=== PATIENT | female | born 1985 | race Caucasian/White ===

== ENCOUNTER 2022-06-04 20:48 | Inpatient (IN) | payer OTHER ==
--- NOTE | 2022-06-04 22:29 | CT ---
EXAMINATION TYPE: CT brain wo con DATE OF EXAM: 06/04/2022 COMPARISON: None HISTORY: ams CT DLP: 1109.4 mGycm Automated exposure control for dose reduction was used. Images of the brain obtained with no contrast. Ventricles are normal size. There is no mass effect or midline shift. No sign of intracranial hemorrh age. Calvarium is intact. There is normal aeration of the mastoid sinuses. IMPRESSION: Negative unenhanced head CT scan.
[2022-06-04 22:36] LABS: Basophils % (A) 0 %; Eosinophils % (A) 0 %; HCT 45.8 % (34.0-46.0); HGB 15.6 gm/dL (11.4-16.0); Lymphocytes # (A) 0.8 k/uL (1.0-4.8); Lymphocytes % (A) 5 %; MCH 31.4 pg (25.0-35.0); MCHC 34.1 g/dL (31.0-37.0); MCV 92.1 fL (80.0-100.0); Monocytes # (A) 0.6 k/uL (0-1.0); Monocytes % (A) 4 %; Neutrophils # (A) 13.7 k/uL (1.3-7.7); Neutrophils % (A) 90 %; Platelet Count 247 k/uL (150-450); RBC 4.98 m/uL (3.80-5.40); RDW 12.8 % (11.5-15.5); WBC 15.3 k/uL (3.8-10.6)
[2022-06-04 22:50] LABS: ALT 48 U/L (4-34); AST 39 U/L (14-36); Acetaminophen <10.0 ug/mL; African American GFR (CKD) >90 (>60 ml/min/1.73 sqM); Albumin 4.6 g/dL (3.5-5.0); Alkaline Phosphatase 94 U/L (38-126); Anion Gap 12 mmol/L; Blood Urea Nitrogen 8 mg/dL (7-17); Calcium 9.2 mg/dL (8.4-10.2); Carbon Dioxide 24 mmol/L (22-30); Chloride 104 mmol/L (98-107); Glucose 236 mg/dL (74-99); Non-African American GFR(CKD) >90 (>60 ml/min/1.73 sqM); Potassium 3.8 mmol/L (3.5-5.1); Salicylate <1.0 mg/dL; Sodium 140 mmol/L (137-145); Total Bilirubin 1.4 mg/dL (0.2-1.3); Total Protein 7.5 g/dL (6.3-8.2)
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
[2022-06-05] MEDS ORDERED: MAG HYDROX/AL HYDROX/SIMETH 355 ML BOTTLE PO PRN (01:55)
[2022-06-05] MEDS ORDERED: MAGNESIUM HYDROXIDE 2,400 MG/10 ML CUP PO PRN (01:55)
[2022-06-05] MEDS ORDERED: LORazepam 1 MG TAB PO PRN (01:55)
[2022-06-05] MEDS ORDERED: HALOPERIDOL LACTATE 5 MG/ML 1 ML VIAL IM PRN (01:55)
[2022-06-05] MEDS ORDERED: ACETAMINOPHEN TAB 325 MG TAB PO PRN (01:55)
[2022-06-05] MEDS ORDERED: LORazepam 2 MG/ML INJ IM PRN (01:59)
[2022-06-05] MEDS ORDERED: haloperidoL 5 MG TAB PO PRN (02:00)
[2022-06-05] MEDS ORDERED: QUEtiapine 50 MG TAB PO PRN (02:01)
--- NOTE | 2022-06-05 04:17 | P.PN ---
Progress Note - Text Progress Note Date: 06/05/22 notified of new consult, however patient is not appropriate for evaluation at this time
[2022-06-05 08:48] LABS: Chol/HDL Ratio 4.27 Ratio; LDL Cholesterol,Calculated 123.5 mg/dL (0.0-131.0)
[2022-06-05] MEDS: NICOTINE 14MG/24HR PATCH TRANSDERM SCH (09:40)
[2022-06-05 11:40] LABS: Appearance,Urine Clear (Clear); Bacteria,Urine Rare /hpf; Bilirubin,Urine Negative (Negative); Blood,Urine Moderate (Negative); Color,Urine Light Yellow; Glucose,Urine (UA) 2+ (Negative); Ketones,Urine Trace (Negative); Leukocyte Esterase,Urine Negative (Negative); Mucus,Urine Occasional /hpf; Nitrite,Urine Negative (Negative); Protein,Urine Trace (Negative); RBC,Urine 10 /hpf (0-5); Specific Gravity,Urine 1.009 (1.001-1.035); Squamous Epithelial Cell,Urine 1 /hpf (0-4); Urobilinogen,Urine <2.0 mg/dL (<2.0); WBC,Urine 1 /hpf (0-5)
[2022-06-05 11:57] LABS: Amphetamine Screen,Urine Not Detected (NotDetected); Barbiturate Screen,Urine Not Detected (NotDetected); Benzodiazepines Screen,Urine Not Detected (NotDetected); Cocaine Screen,Urine Not Detected (NotDetected); Methadone Screen, Urine Not Detected (NotDetected); Opiate Screen,Urine Not Detected (NotDetected); Oxycodone Screen, Urine Not Detected (NotDetected); Phencyclidine Screen,Urine Not Detected (NotDetected); Tricyclic Antidepressant,Urine Not Detected (NotDetected); Urn Cannabinoid Scrn Detected (NotDetected)
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
[2022-06-05 12:46] LABS: Glucose,Whole Blood 117 mg/dL (70-110)
[2022-06-05] MEDS: PRAZOSIN 1 MG CAP PO SCH (20:47)
[2022-06-05] MEDS: QUEtiapine 50 MG TAB PO SCH (20:47)
--- NOTE | 2022-06-05 23:37 | P.PN ---
Progress Note - Text Progress Note Date: 06/05/22 patient refused medical evaluation again
[2022-06-06] MEDS: NICOTINE 14MG/24HR PATCH TRANSDERM SCH (09:06)
--- NOTE | 2022-06-06 13:04 | P.PN ---
Progress Note - Text Progress Note Date: 06/06/22 Interval History: Patient was seen resting in bed and was directable and agreeable to speak with report writer in her room. Currently, the patient is denying any suicidal or homicidal ideation, intention, and/or plan. She is not reporting any auditory or visual hallucinations. She is denying any paranoia or other delusions. The patient denies any racing thoughts, mood lability, or grandiosity. She has been adherent with her medication is not reporting any side effects at this time. Mental Status Exam: General Appearance: Patient appears to be stated age is alert, directable, and cooperative. Behavior: Patient is calmly seated without any agitated behavior. Speech: Patient's speech is fluent and nonpressured. Mood/Affect: Mood is improving mildly, affect is congruent and constricted. Suicidality/Homicidality: Patient denies having any suicidal or homicidal ideat ion intent or plan. Perceptions: Patient denies any visual hallucinations and denies any auditory hallucinations Though content/process: There is no evidence of any delusional thought content and thought process is linear and goal-directed. 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 Patient has signed adult voluntary form and medication consent and was placed in patient's chart. -Medications: Seroquel 50 mg by mouth at bedtime for acute jo ann Prazosin 1 mg by mouth at bedtime for PTSD related nightmares -When necessary Ativan and Haldol for agitation/aggression. -NRT - nicotine patch -SW on board for discharge planning. Encouraged the patient to participate in milieu.
[2022-06-06] MEDS: QUEtiapine 50 MG TAB PO SCH (20:09)
[2022-06-06] MEDS: PRAZOSIN 1 MG CAP PO SCH (20:09)
[2022-06-07 05:12] VITALS: BP 111/77; PULSE 117; RESP 14; TEMP 97.6
[2022-06-07] MEDS: NICOTINE 14MG/24HR PATCH TRANSDERM SCH (10:10)
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
== END 2022-06-07 13:13 | disposition home or self-care (01) | DRG 885 ==
LOC: EC 20:48 → 3MHU 06-05 01:51
PROVIDERS: ADMIT Psychiatry & Neurology Psychiatry; ATTEND Psychiatry & Neurology Psychiatry
DX: F23 Brief psychotic disorder (principal); T38.0X5A Adverse effect of glucocorticoids and synthetic analogues, initial encounter; F30.9 Manic episode, unspecified; F12.10 Cannabis abuse, uncomplicated; F43.10 Post-traumatic stress disorder, unspecified; F17.210 Nicotine dependence, cigarettes, uncomplicated; Z53.29 Procedure and treatment not carried out because of patient's decision for other reasons; Z56.0 Unemployment, unspecified; Z20.822 Contact with and (suspected) exposure to COVID-19; Z79.899 Other long term (current) drug therapy
CPT/HCPCS: 36415; 70450; 80053; 80061; 80143; 80179; 80306; 80320; 81001; 81025; 83036; 84443; 85025; 87635; 99285

== ENCOUNTER 2022-10-12 10:02 | Inpatient (IN) | payer MEDICAID, OTHER ==
--- NOTE | 2022-10-12 10:32 | ED ---
General Adult HPI - General Source: patient, EMS, RN notes reviewed, old records reviewed Mode of arrival: EMS Limitations: no limitations <Konstantin Baker - Last Filed: 10/20/22 14:55> <Christian Gómez - Last Filed: 10/24/22 06:45> - General Chief complaint: Psychiatric Symptoms Stated complaint: Mental Health Time Seen by Provider: 10/12/22 10:05 - History of Present Illness Initial comments: This is a 37-year-old female was brought in by EMS because called for the patient having some sort of mental breakdown. According to the paramedics the patient was screaming and yelling and talking about Dwain is and so the wanted her to be brought in and evaluated. EMS also stated that the patient was hallucinating. I tried to talk to the patient she refuse to tell me except that she was indeed having a mental breakdown but she would not get specific and she certainly did not indicate any hallucinations. Patient states anytime anybody touches her hurts if she is touching her whole body during the interview. Patient was very uncooperative and didn't get much history (Konstantin Baker) - Related Data Previous Rx's Medication Instructions Recorded Prazosin [Minipress] 1 mg PO HS 30 Days #30 cap 10/20/22 QUEtiapine [SEROquel] 50 mg PO HS 30 Days #30 tab 10/20/22 Sulfamethox-Tmp 800-160Mg [Bactrim 1 each PO BID 3 Days #5 tab 10/20/22 DS 800-160 mg] Allergies Allergy/AdvReac Type Severity Reaction Status Date / Time latex Allergy Unknown Rash/Hives Verified 10/20/22 12:47 prednisone AdvReac Hallucinati Verified 10/20/22 12:47 ons Review of Systems ROS Other: All systems not noted in ROS Statement are negative. <Konstantin Baker - Last Filed: 10/20/22 14:55> ROS Other: All systems not noted in ROS Statement are negative. <Christian Gómez - Last Filed: 10/24/22 06:45> ROS Statement: Those systems with pertinent positive or pertinent negative responses have been documented in the HPI. Past Medical History Past Medical History: Unable to Obtain Additional Past Medical History / Comment(s): Reports a history of chronic fatigue syndrome and abdominal pain when eating red meat. History of Any Multi-Drug Resistant Organisms: Unobtainable Past Surgical History: Unable to Obtain Additional Past Surgical History / Comment(s): Denies surigical HX Past Psychological History: Unable to Obtain Smoking Status: Unknown if ever smoked Past Alcohol Use History: Unable to Obtain Past Drug Use History: Unable to Obtain <Konstantin Baker - Last Filed: 10/20/22 14:55> General Exam Limitations: no limitations <Konstantin Baker - Last Filed: 10/20/22 14:55> - General Exam Comments Initial Comments: GENERAL: Patient is well-developed and well-nourished. Patient is nontoxic and well- hydrated and is in no acute distress. ENT: Neck is soft and supple. No significant lymphadenopathy is noted. Oropharynx is clear. Moist mucous membranes. Neck has full range of motion without eliciting any pain. EYES: The sclera were anicteric and conjunctiva were pink and moist. Extraocular movements were intact and pupils were equal round and reactive to light. Eyelids were unremarkable. PULMONARY: Unlabored respirations. Good breath sounds bilaterally. No audible rales rh onchi or wheezing was noted. CARDIOVASCULAR: There is a regular rate and rhythm without any murmurs gallops or rubs. ABDOMEN: Soft and nontender with normal bowel sounds. SKIN: Patient has what appears to be rosacea on her face. NEUROLOGIC: Patient is alert and oriented x3. Cranial nerves II through XII are grossly intact. Motor and sensory are also intact. Normal speech, volume and content. Symmetrical smile. MUSCULOSKELETAL: Normal extremities with adequate strength and full range of motion. No lower extremity swelling or edema. No calf tenderness. LYMPHATICS: No significant lymphadenopathy is noted PSYCHIATRIC: Yelling and screaming is being very unreasonable and states she's having a mental breakdown and acute psychosis (Konstantin Baker) Course Vital Signs 10/12/22 10/12/22 10:03 18:11 Temperature 97.3 F L Pulse Rate 105 H 100 Respiratory 18 18 Rate Blood Pressure 114/69 118/78 O2 Sat by Pulse 97 98 Oximetry Medical Decision Making - Lab Data Result diagrams: 10/13/22 12:12 10/13/22 12:12 <Konstantin Baker - Last Filed: 10/20/22 14:55> - Lab Data Result diagrams: 10/13/22 12:12 10/13/22 12:12 <Christian Gómez - Last Filed: 10/24/22 06:45> - Medical Decision Making Was pt. sent in by a medical professional or institution (, PA, PHOTOGRAPH PRINTER, urgent care, hospital, or [place] health [place] facility...) When possible be specific @ -No Did you speak to anyone other than the patient for history (EMS, parent, family, police, friend...)? What history was obtained from this source @ -EMS gave me some of the history Did you review nursing and triage notes (agree or disagree)? Why? @ -I reviewed and agree with nursing and triage notes Were old charts reviewed (outside hosp., previous admission, EMS record, old EKG, old radiological studies, urgent care reports/EKG's, [place] health [place] facility records)? Report findings @ -No old charts were reviewed Differential Diagnosis (chest pain, altered mental status, abdominal pain women, abdominal pain men, vaginal bleeding, weakness, fever, dyspnea, syncope, headache, dizziness, GI bleed, back pain, seizure, CVA, palpatations, mental health, musculoskeletal)? @ -Differential Mental Health Depression, anxiety, bipolar, psychosis, schizophrenia, borderline personality, situational depression, adjustment disorder, behavioral disorder, brain tumor, malingering, substance abuse, encephalopathy, medication reaction, dementia, hypothyroidism, degenerative neurologic disorder, lupus.... This is not meant to be all-inclusive list EKG interpreted by me (3pts min.). @ -As above X-rays interpreted by me (1pt min.). @ -None done CT interpreted by me (1pt min.). @ -None done U/S interpreted by me (1pt. min.). @ -None done What testing was considered but not performed or refused? (CT, X-rays, U/S, labs)? Why? @ -None What meds were considered but not given or refused? Why? @ -None Did you discuss the management of the patient with other professionals (professionals i.e. , ANDRE, PHOTOGRAPH PRINTER, lab, RT, psych nurse, professor of social work, cardiovascular tech, teacher, space operations officer, patient case coordinator)? Give summary @ -No Was smoking cessation discussed for >3mins.? @ -No Was critical care preformed (if so, how long)? @ -No Were there social determinants of health that impacted care today? How? (Homelessness, low income, unemployed, alcoholism, drug addiction, transportation, low edu. Level, literacy, decrease access to med. care, care home, rehab)? @ -No Was there de-escalation of care discussed even if they declined (Discuss DNR or withdrawal of care, Hospice)? DNR status @ -No What co-morbidities impacted this encounter? (DM, HTN, Smoking, COPD, CAD, Cancer, CVA, ARF, Chemo, Hep., AIDS, mental health diagnosis, sleep apnea, morbid obesity)? @ -None Was patient admitted / discharged? Hospital course, mention meds given and route, prescriptions, significant lab abnormalities, going to OR and other pertinent info. @ -Patient needs a clinical certification to be admitted however there is no gallop petition currently will be coming in to do one and then a petition will be done and the patient can be admitted. Dr. Gómez will be taking over the care of this patient at 3 PM (Konstantin Baker) Was patient admitted / discharged? Hospital course, mention meds given and route, prescriptions, significant lab abnormalities, going to OR and other pertinent info. @ -[The patient is signed out to me pending results of the studies. After these were completed the patient did require petition to be filed and then I completed clinical certification and patient admitted for further psychiatric care Undiagnosed new problem with uncertain prognosis? @ -[No] Drug Therapy requiring intensive monitoring for toxicity (Heparin, Nitro, Insulin, Cardizem)? @ -[No] Were any procedures done? @ -[No] Diagnosis/symptom? @ -[Acute psychosis, uncomplicated Acute, or Chronic, or Acute on Chronic? @ -[default] Uncomplicated (without systemic symptoms) or Complicated (systemic symptoms)? @ -[default] Side effects of treatment? @ -[No] Exacerbation, Progression, or Severe Exacerbation? @ -[No] Poses a threat to life or bodily function? How? (Chest pain, [place], [place], pneumonia, PE, COPD, DKA, ARF, appy, cholecystitis, CVA, Diverticulitis, Homicidal, Suicidal, threat to staff... and all critical care pts) @ -[No] (Christian Gómez) - Lab Data Lab Results 10/12/22 Range/Units 15:50 Coronavirus (PCR) Not Detected (Not Detectd) Disposition <Konstantin Baker - Last Filed: 10/20/22 14:55> Is patient prescribed a controlled substance at d/c from ED?: No <Christian Gómez - Last Filed: 10/24/22 06:45> Clinical Impression: Acute psychosis Disposition: ADMITTED IP TO THIS HOSP Condition: Stable
[2022-10-12] MEDS ORDERED: MAG HYDROX/AL HYDROX/SIMETH 30 ML CUP PO PRN (17:56)
[2022-10-12] MEDS ORDERED: ACETAMINOPHEN TAB 325 MG TAB PO PRN (17:56)
[2022-10-12] MEDS ORDERED: HALOPERIDOL LACTATE 5 MG/ML 1 ML VIAL IM PRN (17:56)
[2022-10-12] MEDS ORDERED: MAGNESIUM HYDROXIDE 2,400 MG/10 ML CUP PO PRN (17:56)
[2022-10-12] MEDS ORDERED: haloperidoL 5 MG TAB PO PRN (17:58)
[2022-10-12] MEDS ORDERED: LORazepam 2 MG/ML INJ IM PRN (17:58)
[2022-10-12] MEDS: LORazepam 1 MG TAB PO PRN (18:39)
--- NOTE | 2022-10-13 01:42 | P.CONS ---
History of Present Illness - Reason for Consult Consult date: 10/12/22 medical management - Chief Complaint medical evaluation - History of Present Illness 37 year old female denies any significant past medical history she is coming in due to her calling EMS for help as patient seemed to be having mental breakdown . patient is not providing any history at this time , she admits to auditory hallucination and denies suicidal ideation , but does not go over details. she does not answer most of my questions Review of Systems ROS unobtainable: due to mental status Past Medical History Past Medical History: Unable to Obtain Additional Past Medical History / Comment(s): Reports a history of chronic fatigue syndrome and abdominal pain when eating red meat. History of Any Multi-Drug Resistant Organisms: Unobtainable Past Surgical History: Unable to Obtain Additional Past Surgical History / Comment(s): Denies surigical HX Past Psychological History: Unable to Obtain Smoking Status: Unknown if ever smoked Past Alcohol Use History: Unable to Obtain Past Drug Use History: Unable to Obtain Medications and Allergies Home Medications Medication Instructions Recorded Confirmed Type No Known Home Medications 10/12/22 10/12/22 History Allergies Allergy/AdvReac Type Severity Reaction Status Date / Time latex Allergy Unknown Rash/Hives Verified 10/12/22 12:02 prednisone AdvReac Hallucinati Verified 10/12/22 12:02 ons Physical Exam Vitals: Vital Signs Temp Pulse Pulse Resp BP BP Pulse Ox 10/12/22 18:30 98.5 F 109 H 17 132/94 98 10/12/22 18:11 100 18 118/78 98 10/12/22 10:03 97.3 F L 105 H 18 114/69 97 Intake and Output 10/12/22 10/12/22 10/13/22 14:59 22:59 06:59 Other: Weight 77.111 kg patient refused physical exam Assessment and Plan Assessment: acute psychosis management per psych follow up blood work no reported medical concerns covid test negative patient was not cooperative with the interview , please dont hesitate to contact sound physicians if deemed necessary at a later time when patient is more cooperative thank you for this consultation
[2022-10-13] MEDS: NICOTINE 14MG/24HR PATCH TRANSDERM SCH (08:48)
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
[2022-10-13 12:48] LABS: Basophils % (A) 0 %; Eosinophils % (A) 0 %; HCT 41.8 % (34.0-46.0); HGB 14.6 gm/dL (11.4-16.0); Lymphocytes # (A) 1.6 k/uL (1.0-4.8); Lymphocytes % (A) 14 %; MCH 31.6 pg (25.0-35.0); MCV 90.3 fL (80.0-100.0); Mean Platelet Volume 9.3; Monocytes # (A) 0.6 k/uL (0-1.0); Monocytes % (A) 5 %; Neutrophils # (A) 9.3 k/uL (1.3-7.7); Neutrophils % (A) 79 %; Platelet Count 248 k/uL (150-450); RBC 4.63 m/uL (3.80-5.40); RDW 12.6 % (11.5-15.5); WBC 11.7 k/uL (3.8-10.6)
[2022-10-13 13:05] LABS: ALT 41 U/L (4-34); AST 34 U/L (14-36); African American GFR (CKD) >90 (>60 ml/min/1.73 sqM); Albumin 4.2 g/dL (3.5-5.0); Alkaline Phosphatase 83 U/L (38-126); Anion Gap 12 mmol/L; Blood Urea Nitrogen 18 mg/dL (7-17); Calcium 9.3 mg/dL (8.4-10.2); Carbon Dioxide 26 mmol/L (22-30); Chloride 100 mmol/L (98-107); Glucose 123 mg/dL (74-99); Non-African American GFR(CKD) >90 (>60 ml/min/1.73 sqM); Sodium 138 mmol/L (137-145); Total Protein 7.3 g/dL (6.3-8.2)
[2022-10-13] MEDS: OLANZapine 10 MG TAB PO SCH ×2 (20:46→21:26)
[2022-10-13] MEDS: LORazepam 1 MG TAB PO PRN (21:26)
--- NOTE | 2022-10-14 11:42 | P.PN ---
Subjective Progress Note Date: 10/14/22 Principal diagnosis: Weakness: Noncompliance with treatment, history of cannabis abuse. Diagnostic impression: 1. Brief psychotic episode. 2. Cannabis use disorder mild to moderate. 3. Alcohol use disorder severe in remission. Subjective: I went to see the patient in her room and she refused to see me saying come back later. When I came back later she was willing come back down to the office and basically said, "I just want some medicine to help me sleep and then send me home." I said I couldn't do that I could help her take a look at her medications and find something for sleep. She said, " well why are you holding me here question" then everything I told her she said was a lie and you've people this and you have people that. And the medical board will hear about this and I'm not taking any medication because I don't trust you." She did say that the last time she was here the medicine she was given seem to help but she didn't continue to take them. At that time she was given prazosin 1 mg which she does not think really helped the nightmares. She was also given 50 mg of Seroquel. Last night she took Zyprexa 10 mg and slept about 4 hours. Objective: Looking over the chart there was a lot of paranoid psychotic symptoms which she denies and just says we are lying. She had intense gaze, normal gait minimal self-care, the harder I try to work with her calm her down and find some way to help her the more she worked hard to become agitated. She did not threaten me but then refused to focus on medications that she wasn't going to be discharged immediately. Assessment: Patient still not doing well gets agitated easily probably needs to increase Zyprexa to 20 and add in prazosin but she is going to refused to do that. He is going to be hard to help her with her agitated psychosis due to her lightheadedness view of things. I cannot assess whether the concerns that were present when she was admitted under any better because she simply denies that and her ease of agitation would suggest that there probably are still there Plan: If she changes her mind is still going to suggest an increase in the Zyprexa and adding the prazosin. . Objective - Vital Signs Vital signs: Vital Signs Temp 97.8 F 10/14/22 06:18 Pulse 138 H 10/14/22 06:18 Resp 16 10/14/22 06:18 BP 123/71 10/14/22 06:18 Pulse Ox 98 10/14/22 06:18 FiO2 - Labs CBC & Chem 7: 10/13/22 12:12 10/13/22 12:12 Labs: Abnormal Lab Results - Last 24 Hours (Table) 10/13/22 10/13/22 Range/Units 12:12 12:12 WBC 11.7 H (3.8-10.6) k/uL Neutrophils # 9.3 H (1.3-7.7) k/uL BUN 18 H (7-17) mg/dL Glucose 123 H (74-99) mg/dL Total Bilirubin 3.0 H (0.2-1.3) mg/dL ALT 41 H (4-34) U/L
[2022-10-14] MEDS: NICOTINE 14MG/24HR PATCH TRANSDERM SCH (11:44)
[2022-10-14 17:03] LABS: Appearance,Urine Clear (Clear); Bacteria,Urine Few /hpf; Bilirubin,Urine Negative (Negative); Blood,Urine Large (Negative); Color,Urine Yellow; Glucose,Urine (UA) Negative (Negative); Hyaline Casts,Urine 5 /lpf (0-2); Ketones,Urine 4+ (Negative); Leukocyte Esterase,Urine Trace (Negative); Mucus,Urine Many /hpf; Nitrite,Urine Negative (Negative); Protein,Urine 2+ (Negative); RBC,Urine 6 /hpf (0-5); Specific Gravity,Urine 1.027 (1.001-1.035); Squamous Epithelial Cell,Urine 4 /hpf (0-4); Urobilinogen,Urine <2.0 mg/dL (<2.0); WBC,Urine 16 /hpf (0-5)
[2022-10-14 23:30] LABS: Urine Alcohol Negative (Negative); Urine Barbiturate Negative (Negative); Urine Cocaine Negative (Negative); Urine Methadone Negative (Negative); Urine Opiates Negative (Negative); Urine Phencyclidine Negative (Negative)
[2022-10-15] MEDS: OLANZapine 10 MG TAB PO SCH ×2 (00:53→23:39)
[2022-10-15] MEDS: LORazepam 1 MG TAB PO PRN (00:54)
[2022-10-15] MEDS: NICOTINE 14MG/24HR PATCH TRANSDERM SCH (09:25)
--- NOTE | 2022-10-15 11:24 | P.PN ---
Subjective Progress Note Date: 10/15/22 Principal diagnosis: Weakness: Noncompliance with treatment, history of cannabis abuse. Diagnostic impression: 1. Brief psychotic episode. 2. Cannabis use disorder mild to moderate. 3. Alcohol use disorder severe in remission. Subjective: I went to see the patient in her room and she was still in her bed at 11 in the morning. And so was given her Zyprexa at half past midnight. She then was able to get some sleep. She says she gets hypoglycemic and slept to breakfast and then had to have a snack. She says that she has wild dreams but did not want to take any new medicine until she gets out of here and meets her outpatient doctor. Objective: she tends to turn every topic into an argument. For example she pointed out yesterday that she has trouble with nightmares and wild dreams. Then she said well it isn't every night and moved on to say I wasn't lying. It is as if she thinks we would read any adjustment of information as an accusation of lying. Her affect was intense. Speech is somewhat pressured Assessment: Patient still not doing well gets agitated easily. She is still not doing well but seems a little bit calmer probably help that she took the Zyprexa in the middle of the night. Plan: I stillsuggest an increase in the Zyprexa and adding the prazosin but she says she wants to wait that she sees her outpatient doctor. . . Objective - Vital Signs Vital signs: Vital Signs Temp 97.8 F 10/15/22 00:55 Pulse 123 H 10/15/22 00:55 Resp 16 10/15/22 00:55 BP 118/80 10/15/22 00:55 Pulse Ox 98 10/15/22 00:55 FiO2 - Labs CBC & Chem 7: 10/13/22 12:12 10/13/22 12:12 Labs: Abnormal Lab Results - Last 24 Hours (Table) 10/14/22 Range/Units 16:36 Urine Protein 2+ H (Negative) Urine Ketones 4+ H (Negative) Urine Blood Large H (Negative) Ur Leukocyte Esterase Trace H (Negative) Urine RBC 6 H (0-5) /hpf Urine WBC 16 H (0-5) /hpf Urine Bacteria Few H (None) /hpf Hyaline Casts 5 H (0-2) /lpf Urine Mucus Many H (None) /hpf
[2022-10-16] MEDS: LORazepam 1 MG TAB PO PRN (10:37)
--- NOTE | 2022-10-16 12:47 | P.PN ---
Progress Note - Text Progress Note Date: 10/16/22 S&O: Patient was seen in rounds. She continues to be confused and is still not able to provide reliable information. She changes her information from moment to moment. She said she has pain in her brain and cannot think properly. She has leukocytosis with abnormal urinalysis suggestive of UTI. A medical consult was initiated. She refused to take her Zyprexa last night and stays by herself and does not socialize or attend groups. This is a right ambulatory female with adequate hygiene. She gets restless at times. Her speech is fairly spontaneous but she cannot focus on the topic and changes her information frequently. Once she said she has brain pain and other times he is said she cannot think properly. She denies hallucinations, delusional thinking, suicide and homicide thoughts. She thinks she is ready to go home and there is nothing wrong with her. A&P: Continue Zyprexa and other therapies. Medical consult was placed regarding possible UTI and other possible underlying medical conditions.
[2022-10-16] MEDS: SULFAMETHOX-TMP 800-160MG 1 EACH TAB PO SCH ×2 (15:11→21:12)
[2022-10-16] MEDS: OLANZapine 10 MG TAB PO SCH (21:12)
[2022-10-17] MEDS: SULFAMETHOX-TMP 800-160MG 1 EACH TAB PO SCH ×2 (09:17→20:32)
--- NOTE | 2022-10-17 10:22 | P.PN ---
Progress Note - Text Progress Note Date: 10/17/22 S&O: Patient was seen in rounds. She did take her Zyprexa last night, said she slept better. She continues to refuse to take her Bactrim for probable UTI. She insists that she does not have it and does not want to take it. Counseling was ineffective. She also feels there is nothing wrong with her and is doing fine even though she feels she cannot think clear at times. This is a right ambulatory female who is still wearing hospital gowns. She continues to insist that she is well does not need to be here, does not need to take medicine if she doesn't want. However as noted earlier she took of Zyprexa last night. Today she is more relaxed, not irritable and is able to smile. No agitation or psychomotor retardation. Speech is soft short and goal-directed. Denies hallucinations and delusional thinking but she still feels her brain gets foggy at times. Denies suicide and homicide thoughts. Denies any adverse effect from Zyprexa. A&P: Continue Zyprexa, groups and supervision.
[2022-10-17] MEDS: OLANZapine 10 MG TAB PO SCH (20:32)
[2022-10-18] MEDS: SULFAMETHOX-TMP 800-160MG 1 EACH TAB PO SCH ×2 (09:29→20:58)
--- NOTE | 2022-10-18 10:38 | P.PN ---
Progress Note - Text Progress Note Date: 10/18/22 S&O: Patient was seen in rounds. She had taken her Zyprexa and Bactrim yesterday and this morning. She said she slept well last night and feeling better. But she did not want to talk much and was only interested in going home. She refused to tell how she will get home except that she can find a ride on her own once she is discharged. Refused to say if she had talked to her about her going home. And then she walked out of the office. This is a right ambulatory female with adequate hygiene. She took her medications last night and refused to talk much except that she wants to go home. Did not show any psychomotor agitation or retardation. However she was not cooperative. She is able to answer questions when she wants to. Does not appear to be responding to internal stimuli. Has not shown any behavior suggestive of suicide or homicide. Sensorium appears to be clear. A&P: Continue current medication therapy and supervision.
[2022-10-18] MEDS: OLANZapine 10 MG TAB PO SCH (20:58)
[2022-10-19] MEDS: SULFAMETHOX-TMP 800-160MG 1 EACH TAB PO SCH ×2 (09:15→20:56)
--- NOTE | 2022-10-19 12:27 | P.PN ---
Progress Note - Text Progress Note Date: 10/19/22 S&O: Patient was seen in rounds. Her condition was discussed in treatment team meeting this morning and since she had just started to take her medication and it is not clear if she will comply with medications once she is discharged it was agreed to keep her here until tomorrow when her AMA request needs to be resolved. She has been taking her Bactrim and Zyprexa as prescribed. However today she said she was taking Seroquel 50 mg at bedtime and prazosin 1 mg at bedtime for her nightmares and was doing well on that and wants to be back on those issues of Zyprexa. She said she was having nightmares before she went on Seroquel and so it was agreed to change her Zyprexa to Seroquel and Minipress. She does not have any other concerns except she wants to know the reason for her discharge tomorrow instead of today. The reasoning as written above was discussed with her and she was agreeable to stay until tomorrow to be discharged. This is a right ambulatory female with adequate hygiene. She is calm and cooperative. She does not show any psychomotor agitation or retardation. Her speech is spontaneous relevant and goal-directed. Mood is euthymic and affect is appropriate. She denies hallucinations delusional thinking suicide and homicide thoughts. She said she can think like clear and her brain is functioning better now without any confusion. She is well oriented with adequate memory. A&P: Change Zyprexa to Seroquel and Minipress has noted above. Continue groups and other therapies. Consider discharging tomorrow.
[2022-10-19] MEDS ORDERED: PRAZOSIN 1 MG CAP PO SCH (21:00)
[2022-10-19] MEDS ORDERED: QUEtiapine 50 MG TAB PO SCH (21:00)
[2022-10-20] MEDS: LORazepam 1 MG TAB PO PRN (01:00)
[2022-10-20 01:04] VITALS: BP 112/58; PULSE 97; RESP 17; TEMP 97.5
[2022-10-20] MEDS: SULFAMETHOX-TMP 800-160MG 1 EACH TAB PO SCH (08:39)
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
== END 2022-10-20 15:30 | disposition home or self-care (01) | DRG 775 ==
LOC: EC 10:02 → 3MHU 17:53
PROVIDERS: ADMIT Psychiatry & Neurology Psychiatry; ATTEND Psychiatry & Neurology Psychiatry
DX: F12.159 Cannabis abuse with psychotic disorder, unspecified (principal); F10.11 Alcohol abuse, in remission; Z20.822 Contact with and (suspected) exposure to COVID-19; Z28.21 Immunization not carried out because of patient refusal; F19.10 Other psychoactive substance abuse, uncomplicated; G93.32 Myalgic encephalomyelitis/chronic fatigue syndrome; N39.0 Urinary tract infection, site not specified; T36.8X6A Underdosing of other systemic antibiotics, initial encounter; Z91.128 Patient's intentional underdosing of medication regimen for other reason; Z91.040 Latex allergy status; Z79.899 Other long term (current) drug therapy; Z91.199 Patient's noncompliance with other medical treatment and regimen due to unspecified reason; Z91.51 Personal history of suicidal behavior
CPT/HCPCS: 80053; 80306; 81001; 81025; 82075; 83036; 84443; 85025; 87635

== ENCOUNTER 2022-10-24 05:12 | Inpatient (IN) | payer MEDICAID, OTHER ==
[2022-10-24] MEDS ORDERED: MAGNESIUM HYDROXIDE 2,400 MG/10 ML CUP PO PRN (05:16)
[2022-10-24] MEDS ORDERED: MAG HYDROX/AL HYDROX/SIMETH 30 ML CUP PO PRN (05:16)
[2022-10-24] MEDS ORDERED: LORazepam 2 MG/ML INJ IM PRN (05:19)
[2022-10-24] MEDS ORDERED: HALOPERIDOL LACTATE 5 MG/ML 1 ML VIAL IM PRN (05:20)
[2022-10-24] MEDS ORDERED: haloperidoL 5 MG TAB PO PRN (05:20)
--- NOTE | 2022-10-24 13:47 | P.HP ---
Psychiatric H&P - . H&P Date: 10/24/22 History & Physical: Allergies Allergy/AdvReac Type Severity Reaction Status Date / Time latex Allergy Unknown Rash/Hives Verified 10/20/22 12:47 prednisone AdvReac Hallucinati Verified 10/20/22 12:47 ons Vital Signs Temp 97.5 F L 10/24/22 08:58 Pulse 80 10/24/22 08:58 Resp 18 10/24/22 08:58 BP 122/85 10/24/22 08:58 Pulse Ox 99 10/24/22 08:58 FiO2 Intake & Output 10/23/22 10/24/22 10/24/22 18:59 06:59 18:59 Weight 77.111 kg 68.521 kg 10/24/22 13:40 IDENTIFYING DATA: Patient is a 37-year-old female, currently lives with her boyfriend in a house, she is a [id number] mom, she has 2 kids that live with her and one child that does not HPI: Patient presented to the hospital yesterday as a transfer from [facility]. Patient was recently discharged from the mental health unit as she signed AMA on 10/20. As per physician which was completed by registered nurse at [facility] states that "Caty stated she hasn't slept in 3 days. She admits to hearing voices but unable to express what the voices are saying." "Caty may or may not be taking her prescribed meds as told by her boyfriend to [facility] correctional casework specialist. She has been giving inconsistent stories to staff and [facility] correctional casework specialist". The patient was seen today sitting in her room looking at the wall and was agreeable to speak a typewriter ribbon winder. Patient was fairly bizarre in her thought process and also very delayed answers to questions by typewriter ribbon winder during the interview. Patient appeared to have very poor understanding of her mental illness and need for hospitalization. She states that "I just want my sleeping medications than all leave". She written several times to sign AMA once again and go home. She appears to have very poor insight and judgment. She states that she has not slept in 3 days. She claims that "my boyfriend was worried about me" and states that she was hostile with him as well. She states that she is not feeling depressed or anxious at this time. She claims that she was having "lucid dreams" and claims that she was hearing voices during these dreams. She claims that her appetite is fair. Denying any paranoia. Patient denies any suicidal or homicidal ideations intent or plan. At this time patient denies any auditory or visual hallucinations. Patient denies any flight of ideas racing thoughts and increased in goal directed behavior. Patient admits to using nicotine products, marijuana occasionally, denying any other recreational drug use. PAST PSYCHIATRIC HISTORY: Patient states that she was last psychiatrically admitted to the mental health unit about a week ago. She signed AMA at that time. Patient was previously on Zyprexa and Seroquel. Patient denies any psychiatric outpatient follow-up. Patient denies any history of suicide attempts in the past. PMH: As per medicine H&P ALLERGIES: as per EMR CHEMICAL DEPENDENCY HISTORY: as per HPI FAMILY PSYCHIATRIC/SUBSTANCE USE HISTORY: denies SOCIAL HISTORY: Patient was born and raised in claims that she was born and raised in the [facility]. States that she lives in [place]. Claims that she went to high school and completed it. States that she has 3 kids of her own, lives with 2 of them. She also lives with her boyfriend in a house. She is unemployed. She denied any legal history. MENTAL STATUS EXAM: General Appearance: Patient appears to be bizarre, staring, stated age is alert, directable, and attempts to cooperate. Recommended at times. Patient appears to have poor hygiene and grooming. Behavior: Patient is seated without any agitated behavior. Argumentative. As our Speech: Patient's speech is fluent and nonpressured. Hesitant Mood/Affect: Patient reports their mood is oat alright", affect is congruent and constricted. Suicidality/Homicidality: Patient denies having any homicidal ideation intent or plan. Denies any suicidal ideations intent or plan Perceptions: Patient denies any visual hallucinations and denies any auditory hallucinations Though content/process: Patient is illogical at times, no paranoia. Very poor judgment. Memory and concentration: AOX3, grossly intact for the purposes of this session. Can spell "WORLD" backwards Judgment and insight: poor/impulsive STRENGTHS/WEAKNESSES: strength is that patient is resilient. Weakness is that patient has poor judgment and is impulsive INTELLECT: average IMPRESSIONS: Psychosis unspecified Cannabis use disorder Nicotine dependence PLAN: -Patient is admitted under involuntary status to MHU for stabilization of psychiatric symptoms and safety. Patient has not signed adult voluntary form and medication consent and is placed in patient's chart. A second certification was completed and along with petition will be filed for court. -Medications : Will start patient on paliperidone by mouth 3 mg daily at bedtime for psychosis/mood stabilization, trazodone 50 mg daily at bedtime for sleep. -Ativan and Haldol PRN for agitation/aggression -Patient was counselled on substance abuse and desired to cut back on use -Patient was informed of the risks, benefits and side effects of the medication taking the medications. Patient signed med consent form and was placed in chart. -Internal Medicine consult to perform medical evaluation and physical. -NRT - nicotine patch -SW on board for discharge planning. Encourage patient to participate in groups to work on coping skills. Will await deferral and court date.
[2022-10-24] MEDS: SULFAMETHOX-TMP 800-160MG 1 EACH TAB PO SCH ×2 (13:53→21:02)
[2022-10-24] MEDS ORDERED: PRAZOSIN 1 MG CAP PO SCH (21:00)
[2022-10-24] MEDS ORDERED: QUEtiapine 50 MG TAB PO SCH (21:00)
[2022-10-24] MEDS: PALIPERIDONE 3 MG TAB.ER.24 PO SCH (21:02)
--- NOTE | 2022-10-25 00:37 | P.PN ---
Progress Note - Text Progress Note Date: 10/24/22 patient refused evaluation at this time
[2022-10-25] MEDS: SULFAMETHOX-TMP 800-160MG 1 EACH TAB PO SCH ×2 (08:34→20:38)
--- NOTE | 2022-10-25 10:43 | P.PN ---
Progress Note - Text Progress Note Date: 10/25/22 Interval History: Patient was seen lying in her bed this morning and was directable and agreeable to speak with greeting card writer in the office. Patient states that she did not take her medications yesterday as she feels that she does not trust greeting card writer and wants to be back on her old medications. Linter Drier Operator attempted to explain the differences between the previous medication she was on and the current medication and other options however patient wanted to her remaining on the previous medications for unknown reasons. She states that she looked up the side effects and states that "there's too many of them" and greeting card writer asked specifically which ones she is concerned about however patient was not able to describe what her concerns are about the medications. She was fairly argumentative today and endorsed paranoia. She complained about greeting card writer and believes that she does not have a mental illness and wanted to be released from the hospital. She is claiming that she is hearing voices however states that they are "in a dream like state". Denying any visual hallucinations. States that she slept fairly last night and is up for meals. At this time patient denies any suicidal or homical ideations, intent or plan. Patient has been refusing medications. Mental Status Exam: General Appearance: Patient appears to be bizarre, staring, stated age is alert, directable, and attempts to cooperate. Recommended it. patient appears to have poor hygiene and grooming. Behavior: Patient is seated without any agitated behavior. Argumentative. Paranoid Speech: Patient's speech is nonpressured. Hesitant, long pauses Mood/Affect: Patient reports their mood is "alright", affect is congruent and constricted. Suicidality/Homicidality: Patient denies having any homicidal ideation intent or plan. Denies any suicidal ideations intent or plan Perceptions: Patient denies any visual hallucinations and denies any auditory hallucinations Though content/process: Patient is illogical at times, paranoia. Very poor judgment. Memory and concentration: AOX3, grossly intact for the purposes of this session Judgment and insight: poor/impulsive IMPRESSIONS: Psychosis unspecified Cannabis use disorder Nicotine dependence Plan: -Patient continues to meet criteria for inpatient psychiatric admission for symptom stabilization and safety. Patient has not signed adult voluntary form and medication consent and was placed in patient's chart. -Medications: paliperidone by mouth 3 mg daily at bedtime for psychosis/mood stabilization, trazodone 50 mg daily at bedtime for sleep. Patient is refusing medications at this time. -When necessary Ativan and Haldol for agitation/aggression. -NRT - nicotine patch -SW on board for discharge planning. Encouraged the patient to participate in milieu. Currently awaiting deferral with ballet professor and court date.
[2022-10-25] MEDS: PALIPERIDONE 3 MG TAB.ER.24 PO SCH (20:38)
[2022-10-25] MEDS: traZODone HCL 50 MG TAB PO PRN (20:39)
--- NOTE | 2022-10-26 00:18 | P.PN ---
Progress Note - Text Progress Note Date: 10/25/22 patient refused to talk to anyone at this time
[2022-10-26] MEDS: SULFAMETHOX-TMP 800-160MG 1 EACH TAB PO SCH ×2 (09:00→20:35)
--- NOTE | 2022-10-26 11:31 | P.PN ---
Progress Note - Text Progress Note Date: 10/26/22 Interval History: Patient was seen lying in her bed this morning and was directable and agreeable to speak with lyric writer. Patient did not want to leave her room today or her bed. She states that she did go to 2 groups yesterday however was fairly vague about what she is getting from them. She claims that she is doing a bit better today and started taking her medications. Patient states that she wanted to know one her steward/stewardess second will be coming to speak with her. She appeared to be less argume ntative today with lyric writer however continue to have fairly superficial/poor insight and judgment. She states that she is able to sleep fairly last night. Patient appeared to be less focused on paranoia today. She is claiming that she is hearing voices however states that they are "in a dream like state". Denying any visual hallucinations. At this time patient denies any suicidal or homical ideations, intent or plan. Patient has been refusing medications. Mental Status Exam: General Appearance: Patient appears to be bizarre, staring, stated age is alert, directable, and attempts to cooperate. patient appears to have only improving hygiene and grooming. Behavior: Patient is seated without any agitated behavior. less Argumentative. less Paranoid today Speech: Patient's speech is nonpressured. Hesitant, long pauses, improving mildly Mood/Affect: Patient reports their mood is "alright", affect is congruent and constricted. Suicidality/Homicidality: Patient denies having any homicidal ideation intent or plan. Denies any suicidal ideations intent or plan Perceptions: Patient denies any visual hallucinations and denies any auditory hallucinations Though content/process: Patient is more logical today, less paranoia. Memory and concentration: AOX3, grossly intact for the purposes of this session Judgment and insight: poor/impulsive, improving mildly IMPRESSIONS: Psychosis unspecified Cannabis use disorder Nicotine dependence Plan: -Patient continues to meet criteria for inpatient psychiatric admission for symptom stabilization and safety. Patient has not signed adult voluntary form and medication consent and was placed in patient's chart. -Medications: paliperidone by mouth 3 mg daily at bedtime for psychosis/mood stabilization, trazodone 50 mg daily at bedtime for sleep. -When necessary Ativan and Haldol for agitation/aggression. -NRT - nicotine patch -SW on board for discharge planning. Encouraged the patient to participate in milieu. Currently awaiting deferral with steward/stewardess second and court date.
[2022-10-26 14:58] LABS: Glucose,Whole Blood 186 mg/dL (70-110)
[2022-10-26] MEDS: PALIPERIDONE 3 MG TAB.ER.24 PO SCH (20:35)
[2022-10-26] MEDS: traZODone HCL 50 MG TAB PO PRN (20:59)
[2022-10-27 02:12] LABS: Glucose,Whole Blood 119 mg/dL (70-110)
[2022-10-27] MEDS: SULFAMETHOX-TMP 800-160MG 1 EACH TAB PO SCH ×2 (08:44→20:44)
--- NOTE | 2022-10-27 14:53 | P.PN ---
Progress Note - Text Progress Note Date: 10/27/22 Interval History: Patient was seen lying in her bed this morning and was directable and agreeable to speak with technical writer and editor. Patient did not want to leave her room today or her bed. She claims that she spoke with staff attorney earlier today and signed the deferral. She is agreeable to coming to continue with treatment. She states that she's been feeling more lethargic during the day of claim that she is also feeling dizzy when she started out. She states that this may be because of the paliperidone. We spoke with other medication options including Abilify she is agreeable to take it. States that she slept fairly last night. She was also less argumentative today with technical writer and editor. Patient appeared to be less focused on paranoia today. She is claiming that she is hearing voices however states that they are "in a dream like state". Denying any visual hallucinations. At this time patient denies any suicidal or homical ideations, intent or plan. Patient has been refusing medications. Mental Status Exam: General Appearance: Patient appears to be less bizarre, staring, stated age is alert, directable, and attempts to cooperate. patient appears to have only improving hygiene and grooming. Behavior: Patient is seated without any agitated behavior. less Argumentative. Speech: Patient's speech is nonpressured improving mildly Mood/Affect: Patient reports their mood is "alright", affect is congruent and constricted. Suicidality/Homicidality: Patient denies having any homicidal ideation intent or plan. Denies any suicidal ideations intent or plan Perceptions: Patient denies any visual hallucinations and denies any auditory hallucinations Though content/process: Patient is more logical today, less paranoia. Memory and concentration: AOX3, grossly intact for the purposes of this session Judgment and insight: poor/impulsive, improving mildly IMPRESSIONS: Psychosis unspecified Cannabis use disorder Nicotine dependence Plan: -Patient continues to meet criteria for inpatient psychiatric admission for symptom stabilization and safety. Patient has not signed adult voluntary form and medication consent and was placed in patient's chart. -Medications: d/c paliperidone and replace with abilify po 5 mg daily for psychosis/mood stabilization, trazodone 50 mg daily at bedtime for sleep. -When necessary Ativan and Haldol for agitation/aggression. -NRT - nicotine patch -SW on board for discharge planning. Encouraged the patient to participate in milieu. patient deferred with her staff attorney.
[2022-10-27] MEDS: ARIPiprazole 5 MG TAB PO SCH (15:41)
[2022-10-27] MEDS: traZODone HCL 50 MG TAB PO PRN (20:45)
[2022-10-28] MEDS: SULFAMETHOX-TMP 800-160MG 1 EACH TAB PO SCH ×2 (09:58→20:05)
[2022-10-28] MEDS: ARIPiprazole 5 MG TAB PO SCH (09:58)
--- NOTE | 2022-10-28 10:36 | P.PN ---
Progress Note - Text Progress Note Date: 10/28/22 Interval History: Patient was seen in the [place] and was directable and agreeable to speak with wr iter. She has been more agreeable with treatment and took the Abilify as prescribed. She says that she slept 6 hours with the trazodone and was requesting to be placed "on the medication that was on 6 months ago when I left here". Chart review indicates this to be Seroquel and patient was agreeable with being on this again. She was agreeable with the dosage increase of the Abilify. She reports being tired today and was encouraged to not nap during the daytime in an effort to encourage proper sleep hygiene. However, she says that she is feeling significantly better with the Abilify than she was feeling on the Invega. Patient is mildly paranoid but is not argumentative. She is claiming that she is hearing voices but not during daytime. Denying any visual hallucinations. At this time patient denies any suicidal or homical ideations, intent or plan. Patient has been compliant with medications and denies side effects. Mental Status Exam: General Appearance: Patient appears to be less bizarre, staring, stated age is alert, directable, and attempts to cooperate. patient appears to have only improving hygiene and grooming. Behavior: Patient is seated without any agitated behavior. less Argumentative. Speech: Patient's speech is nonpressured improving mildly Mood/Affect: Patient reports their mood is "fine", affect is congruent and constricted. Suicidality/Homicidality: Patient denies having any homicidal ideation intent or plan. Denies any suicidal ideations intent or plan Perceptions: Patient denies any visual hallucinations and denies any auditory hallucinations Though content/process: Patient is more logical today, less paranoia. Memory and concentration: AOX3, grossly intact for the purposes of this session Judgment and insight: poor/impulsive, improving mildly IMPRESSIONS: Bipolar I disorder with psychotic features Cannabis use disorder Nicotine dependence Plan: -Patient continues to meet criteria for inpatient psychiatric admission for symptom stabilization and safety. Patient has not signed adult voluntary form and medication consent and was placed in patient's chart. -Medications: Increase abilify po to 10 mg daily for psychosis/mood stabiliza tion, Stop trazodone 50 mg daily at bedtime for sleep and start Seroquel 50 mg qHS (given that at this dose, it works as a sedative) -When necessary Ativan and Haldol for agitation/aggression. -NRT - nicotine patch -SW on board for discharge planning. Encouraged the patient to participate in milieu. patient deferred with her attorney at law.
[2022-10-28] MEDS: QUEtiapine 50 MG TAB PO SCH (20:06)
[2022-10-29] MEDS: ARIPiprazole 10 MG TAB PO SCH (08:49)
[2022-10-29] MEDS: SULFAMETHOX-TMP 800-160MG 1 EACH TAB PO SCH ×2 (08:49→21:19)
--- NOTE | 2022-10-29 10:35 | P.PN ---
Progress Note - Text Progress Note Date: 10/29/22 Interval History: Patient was seen in the [place] and was directable and agreeable to speak with wr tre. Patient says she has been waiting to speak to this provider. This is because she has been concerned about the auditory hallucinations that are worsened since last night. She states that her mood is "agitated" as a result. She states that the voices are saying to her "they're asking me to play video games in the head and are saying that they are going to hurt me if I don't. They're trying to hijack my brain via brain waves. I hear them talking and sometimes they use my mouth and it's 2 voices." She was agreeable with increasing medication. She says that she slept well with the Seroquel. She denies other concerns. Patient has been compliant with medications and denies side effects. She denies suicidal and homicidal ideation, intent, or plan, as asked and assessed. Mental Status Exam: General Appearance: Patient appears to be less bizarre, staring, stated age is alert, directable, and attempts to cooperate. patient appears to have only improving hygiene and grooming. Behavior: Patient is seated without any agitated behavior. Speech: Patient's speech is nonpressured improving mildly Mood/Affect: Patient reports their mood is "agitated", affect is constricted. Suicidality/Homicidality: Patient denies having any homicidal ideation intent or plan. Denies any suicidal ideations intent or plan Perceptions: Patient endorses auditory hallucinations. No visual hallucinations Though content/process: Patient is more logical today, less paranoia. Memory and concentration: AOX3, grossly intact for the purposes of this session Judgment and insight: poor/impulsive, improving mildly IMPRESSIONS: Bipolar I disorder with psychotic features Cannabis use disorder Nicotine dependence Plan: -Patient continues to meet criteria for inpatient psychiatric admission for s ymptom stabilization and safety. Patient has not signed adult voluntary form and medication consent and was placed in patient's chart. -Medications: Increase abilify po to 15 mg daily today and 20 mg daily tomorrow for psychosis/mood stabilization, Continue Seroquel 50 mg qHS (given that at this dose, it works as a sedative) -When necessary Ativan and Haldol for agitation/aggression. -NRT - nicotine patch -SW on board for discharge planning. Encouraged the patient to participate in milieu. patient deferred with her energy attorney.
[2022-10-29] MEDS: NICOTINE GUM (POLACRILEX) 2 MG GUM BUCCAL PRN ×3 (11:39→21:54)
[2022-10-29] MEDS: QUEtiapine 50 MG TAB PO SCH (21:19)
[2022-10-29] MEDS: LORazepam 1 MG TAB PO PRN (21:20)
[2022-10-30] MEDS: SULFAMETHOX-TMP 800-160MG 1 EACH TAB PO SCH ×2 (08:45→21:09)
[2022-10-30] MEDS: ARIPiprazole 10 MG TAB PO SCH (08:45)
[2022-10-30] MEDS: NICOTINE GUM (POLACRILEX) 2 MG GUM BUCCAL PRN ×4 (08:46→21:10)
[2022-10-30] MEDS ORDERED: QUEtiapine 25 MG TAB PO STA (11:46)
--- NOTE | 2022-10-30 11:54 | P.PN ---
Progress Note - Text Progress Note Date: 10/30/22 Interval History: Patient was seen taking part in group this morning and was directable and agre eable to speak with film writer. Patient was playing cards in group today with other patients. She claims that she had a difficult weekend. States that the voices have been getting worse. She claimed that they are more demanding and negative at this time. She did claim that she believes the Abilify has not been helping her. She claims that she has been sleeping fairly. We spoke about medication o ptions and she was okay with having her Seroquel increased. She states that she is trying to get by get up out of bed and interact with others. She was also less argumentative today with film writer. Patient appeared to be less focused on paranoia today. Denying any visual hallucinations. At this time patient denies any suicidal or homical ideations, intent or plan. Patient has been taking her medications. Mental Status Exam: General Appearance: Patient appears to be stated age is alert, directable, and attempts to cooperate. patient appears to have only improving hygiene and grooming. Behavior: Patient is seated without any agitated behavior. less Argumentative. Speech: Patient's speech is nonpressured improving mildly Mood/Affect: Patient reports their mood is "anxious", affect is congruent and constricted, improving midlly Suicidality/Homicidality: Patient denies having any homicidal ideation intent or plan. Denies any suicidal ideations intent or plan Perceptions: Patient denies any visual hallucinations and claims to be hearing voices. Though content/process: Patient is more logical today, less paranoia. Memory and concentration: AOX3, grossly intact for the purposes of this session Judgment and insight: poor/impulsive, improving mildly IMPRESSIONS: Psychosis unspecified Cannabis use disorder Nicotine dependence Plan: -Patient continues to meet criteria for inpatient psychiatric admission for symptom stabilization and safety. Patient has not signed adult voluntary form and medication consent and was placed in patient's chart. -Medications: d/c abilify due to s/e and possibly ineffectiveness, increase seroquel 75 mg qhs for insomnia/psychosis, will also order one dose now 25 mg. possivbly add on ssri tomorrow if needed for anxiety/mood. -When necessary Ativan and Haldol for agitation/aggression. -NRT - nicotine patch -SW on board for discharge planning. Encouraged the patient to participate in milieu. patient deferred with her associate attorney. likely discharge in 2-3 days once patient improves psychaitrically.
[2022-10-30] MEDS ORDERED: QUEtiapine 25 MG TAB PO SCH (21:00)
[2022-10-31] MEDS: NICOTINE GUM (POLACRILEX) 2 MG GUM BUCCAL PRN ×5 (01:41→19:52)
[2022-10-31] MEDS: SULFAMETHOX-TMP 800-160MG 1 EACH TAB PO SCH (08:26)
--- NOTE | 2022-10-31 11:26 | P.PN ---
Progress Note - Text Progress Note Date: 10/31/22 Interval History: Patient was seen sleeping in her bed today. She appeared to be fairly lethargic and tired this morning. She claims that she did not sleep well last night. She claims that she had a big headache after taking the medications. States that she slept mostly dated yesterday after taking the Seroquel. She appears to be complaining of over sedation from the Seroquel. He spoke about other medication options and patient is open to trying another antipsychotic. She claims that Seroquel is also making her feel eerie irritable and agitated at times. We spoke about Geodon which patient was okay with trying. She states that she is still having some anxiety, fair mood at this time. She was also less argumentative today with flex o writer operator and more cooperative today. Patient appeared to be less focused on paranoia today. Denying any visual hallucinations. Patient claims that she is still hearing voices. At this time patient denies any suicidal or homical ideations, intent or plan. Patient has been taking her medications. Mental Status Exam: General Appearance: Patient appears to be stated age is more lethargic today, directable, and attempts to cooperate. patient appears to have only improving hygiene and grooming. Behavior: Patient is seated without any agitated behavior. Cooperative today. Speech: Patient's speech is nonpressured improving mildly Mood/Affect: Patient reports their mood is "anxious and tired", affect is congruent and constricted, improving midlly Suicidality/Homicidality: Patient denies having any homicidal ideation intent or plan. Denies any suicidal ideations intent or plan Perceptions: Patient denies any visual hallucinations and claims to be hearing voices. Though content/process: Patient is more logical today, less paranoia. Memory and concentration: AOX3, grossly intact for the purposes of this session Judgment and insight: improving mildly IMPRESSIONS: Psychosis unspecified Cannabis use disorder Nicotine dependence Plan: -Patient continues to meet criteria for inpatient psychiatric admission for symptom stabilization and safety. Patient has not signed adult voluntary form and medication consent and was placed in patient's chart. -Medications: d/c seroquel due to s/e and also oversedation. start geodon 20 mg bid for mood stabilization/psychosis. check ekg today. added remeron 15 mg qhs for insomnia -When necessary Ativan and Haldol for agitation/aggression. -NRT - nicotine patch -SW on board for discharge planning. Encouraged the patient to participate in milieu. patient deferred with her criminal defense attorney. likely discharge in 2-3 days once patient improves psychiatrically.
[2022-10-31] MEDS: ZIPRASIDONE 20 MG CAP PO SCH ×2 (15:31→19:52)
[2022-10-31] MEDS: LORazepam 1 MG TAB PO PRN (16:38)
[2022-10-31] MEDS ORDERED: MIRTAZAPINE 15 MG TAB PO SCH (21:00)
[2022-11-01] MEDS: ACETAMINOPHEN TAB 325 MG TAB PO PRN (06:13)
[2022-11-01] MEDS: LORazepam 1 MG TAB PO PRN (06:13)
[2022-11-01] MEDS: NICOTINE GUM (POLACRILEX) 2 MG GUM BUCCAL PRN ×4 (06:14→20:49)
[2022-11-01] MEDS: ZIPRASIDONE 20 MG CAP PO SCH (07:58)
--- NOTE | 2022-11-01 10:31 | P.PN ---
Progress Note - Text Progress Note Date: 11/01/22 Interval History: Patient was seen sleeping in her bed today. Patient was agreeable to speak with the play writer in the office today. She claims that she is feeling tired again this morning states that she was having a headache also feels unwell. She claims that she does feel "sick" however was fairly general and vague about what other symptoms she is having. She was agreeable to have blood work done today. She states that she was able to sleep fairly last night. Claims that the medication s have not been helping so far. She continues to state that she hears voices "telling me not to listen to you". She states that she is still having some anxiety, fair mood at this time. She was also less argumentative today. Patient did appear to be and was endorsing paranoia towards play writer. Denying any visual hallucinations. Patient claims that she is still hearing voices have not improved. At this time patient denies any suicidal or homical ideations, intent or plan. Patient has been taking her medications. Mental Status Exam: General Appearance: Patient appears to be stated age is alert, directable, and attempts to cooperate. Paranoid at times. patient appears to have only improving hygiene and grooming. Behavior: Patient is seated without any agitated behavior. Cooperative today. Speech: Patient's speech is nonpressured improving mildly Mood/Affect: Patient reports their mood is "anxious", affect is congruent and constricted Suicidality/Homicidality: Patient denies having any homicidal ideation intent or plan. Denies any suicidal ideations intent or plan Perceptions: Patient denies any visual hallucinations and claims to be hearing voices which are not improving. Though content/process: Patient is more logical today, paranoia. concrete Memory and concentration: AOX3, grossly intact for the purposes of this session Judgment and insight: poor, improving mildly IMPRESSIONS: Psychosis unspecified Cannabis use disorder Nicotine dependence Plan: -Patient continues to meet criteria for inpatient psychiatric admission for symptom stabilization and safety. Patient has not signed adult voluntary form and medication consent and was placed in patient's chart. -Medications: dincrease geodon 20 mg daily + 40 mg qhs for mood stabilization/psychosis. change remeron 15 mg qhs to prn for insomnia -When necessary Ativan and Haldol for agitation/aggression. -reviewed ekg, ordered blood work today including CBC with diff and Comp panel -NRT - nicotine patch -SW on board for discharge planning. Encouraged the patient to participate in milieu. patient deferred with her subway train driver. likely discharge once patient improves psychiatrically.
[2022-11-01 12:21] LABS: Basophils % (A) 0 %; Eosinophils # (A) 0.1 k/uL (0-0.7); Eosinophils % (A) 2 %; HCT 41.5 % (34.0-46.0); HGB 14.1 gm/dL (11.4-16.0); Lymphocytes # (A) 1.7 k/uL (1.0-4.8); Lymphocytes % (A) 25 %; MCH 31.4 pg (25.0-35.0); MCV 92.3 fL (80.0-100.0); Mean Platelet Volume 9.6; Monocytes # (A) 0.4 k/uL (0-1.0); Monocytes % (A) 5 %; Neutrophils # (A) 4.5 k/uL (1.3-7.7); Neutrophils % (A) 65 %; Platelet Count 186 k/uL (150-450); RDW 13.5 % (11.5-15.5)
[2022-11-01 12:36] LABS: ALT 59 U/L (4-34); AST 40 U/L (14-36); African American GFR (CKD) >90 (>60 ml/min/1.73 sqM); Albumin 3.6 g/dL (3.5-5.0); Alkaline Phosphatase 73 U/L (38-126); Anion Gap 8 mmol/L; Blood Urea Nitrogen 7 mg/dL (7-17); Calcium 8.8 mg/dL (8.4-10.2); Carbon Dioxide 25 mmol/L (22-30); Chloride 105 mmol/L (98-107); Glucose 130 mg/dL (74-99); Non-African American GFR(CKD) >90 (>60 ml/min/1.73 sqM); Potassium 3.7 mmol/L (3.5-5.1); Sodium 138 mmol/L (137-145); Total Bilirubin 0.9 mg/dL (0.2-1.3); Total Protein 6.3 g/dL (6.3-8.2)
[2022-11-01] MEDS ORDERED: ZIPRASIDONE 40 MG CAP PO SCH (21:00)
[2022-11-02] MEDS ORDERED: ZIPRASIDONE 20 MG CAP PO SCH (09:00)
[2022-11-02] MEDS: NICOTINE GUM (POLACRILEX) 2 MG GUM BUCCAL PRN ×3 (09:38→20:05)
[2022-11-02] MEDS ORDERED: ZIPRASIDONE 20 MG CAP PO STA (10:15)
--- NOTE | 2022-11-02 10:31 | P.PN ---
Progress Note - Text Progress Note Date: 11/02/22 Interval History: Patient was seen lying in her bed this morning and was agreeable to be corrected in the office. She claims that she did not sleep well last night about 3 or 4 hours. She states that she is still feeling paranoid and was today suspicious of comic book writer. She was fairly preoccupied with her medications and believes that the Geodon is causing "my mood to fluctuate" and states that "I was never like this before". She claims that she is not tolerating the Geodon well and was requesting to have it switched. She also claims that she feels the medications have not been controlling her voices and they have been getting worse. She states that she is hearing the voices as she is speaking with comic book writer and claims that they're still telling her negative things and to not to listen the comic book writer. She claims that she also feels like she is in a "video game". She was requesting to be placed back on Seroquel as it is helped her in the past. We discussed other options and the side effects and benefits of the medications and patient again wants to take Seroquel. She claims that she is napping throughout the day and only going to some groups. She states that she is still having some anxiety, fair mood at this time. Denying any visual hallucinations. Patient claims that she is still hearing voices have not improved. At this time patient denies any suicidal or homical ideations, intent or plan. Patient has been taking her medications. Mental Status Exam: General Appearance: Patient appears to be stated age is alert, directable, and attempts to cooperate. Paranoid at times towards comic book writer. patient appears to have only improving hygiene and grooming. Behavior: Patient is seated without any agitated behavior. Attempts to be Cooperative today. Speech: Patient's speech is nonpressured improving mildly Mood/Affect: Patient reports their mood is "anxious and h[place]", affect is congruent Suicidality/Homicidality: Patient denies having any homicidal ideation intent or plan. Denies any suicidal ideations intent or plan Perceptions: Patient denies any visual hallucinations and claims to be hearing voices which are not improving. Though content/process: Patient is more logical today, paranoia. concrete Memory and concentration: AOX3, grossly intact for the purposes of this session Judgment and insight: poor, improving mildly IMPRESSIONS: Psychosis unspecified Cannabis use disorder Nicotine dependence Plan: -Patient continues to meet criteria for inpatient psychiatric admission for symptom stabilization and safety. Patient has not signed adult voluntary form and medication consent and was placed in patient's chart. patient signed deferral after speaking with her rider ticket worker. -Medications: d/c destineydon as patient is complaining of increased mood lability and increasing aud hallucinations. start seroquel 50 mg qhs as per patients request as she claims that it was the only medication that helped her with the hallucinations in the past and is agreeable to taking it. continue remeron 15 mg qhs to prn for insomnia -When necessary Ativan and Haldol for agitation/aggression. -NRT - nicotine patch -SW on board for discharge planning. Encouraged the patient to participate in milieu. patient deferred with her rider ticket worker. patient is still having psychotic sx including paranoia, hallucinations and likely discharge once patient improves psychiatrically.
[2022-11-02] MEDS ORDERED: QUEtiapine 50 MG TAB PO SCH (21:00)
[2022-11-03] MEDS: NICOTINE GUM (POLACRILEX) 2 MG GUM BUCCAL PRN ×4 (02:50→20:34)
[2022-11-03] MEDS: MIRTAZAPINE 15 MG TAB PO PRN ×2 (02:50→20:34)
[2022-11-03 04:46] VITALS: RESP 16
[2022-11-03] MEDS ORDERED: ZIPRASIDONE 40 MG CAP PO SCH (09:00)
[2022-11-03] MEDS: ACETAMINOPHEN TAB 325 MG TAB PO PRN (09:22)
[2022-11-03] MEDS: LORazepam 1 MG TAB PO PRN ×2 (09:22→20:34)
[2022-11-03 11:09] LABS: Basophils % (A) 0 %; Eosinophils # (A) 0.1 k/uL (0-0.7); Eosinophils % (A) 1 %; HCT 39.9 % (34.0-46.0); HGB 13.8 gm/dL (11.4-16.0); Lymphocytes # (A) 1.6 k/uL (1.0-4.8); Lymphocytes % (A) 21 %; MCH 31.1 pg (25.0-35.0); MCHC 34.6 g/dL (31.0-37.0); MCV 89.7 fL (80.0-100.0); Mean Platelet Volume 9.6; Monocytes # (A) 0.3 k/uL (0-1.0); Monocytes % (A) 4 %; Neutrophils # (A) 5.4 k/uL (1.3-7.7); Neutrophils % (A) 72 %; Platelet Count 201 k/uL (150-450); RBC 4.45 m/uL (3.80-5.40); RDW 13.4 % (11.5-15.5); WBC 7.6 k/uL (3.8-10.6)
[2022-11-03 11:35] LABS: African American GFR (CKD) >90 (>60 ml/min/1.73 sqM); Anion Gap 7 mmol/L; Blood Urea Nitrogen 6 mg/dL (7-17); Calcium 8.8 mg/dL (8.4-10.2); Carbon Dioxide 25 mmol/L (22-30); Chloride 106 mmol/L (98-107); Glucose 139 mg/dL (74-99); Non-African American GFR(CKD) >90 (>60 ml/min/1.73 sqM); Sodium 138 mmol/L (137-145)
[2022-11-03 12:16] VITALS: BMI 25.2
[2022-11-03] MEDS: diphenhydrAMINE 25 MG CAP PO PRN ×2 (12:31→20:34)
[2022-11-03] MEDS: IBUPROFEN 600 MG TAB PO PRN (12:31)
--- NOTE | 2022-11-03 17:11 | P.PN ---
Progress Note - Text Progress Note Date: 11/03/22 Interval History: Patient was seen lying in her bed this morning and was agreeable to be seen in her room. She claims that the seroquel has been helping so far and states that she was able to sleep about 4 hrs. she did claim that was feeling muscle aches this morning and also sore throat and was agreeabl to take a covid test and stay in her room until it is completed. she claims that she has poor energy today. states that she has been having an improvement in her voices today. She states that she is still having some anxiety, fair mood at this time. Denying any visual hallucinations. Patient claims that she is still hearing voices have not improved. At this time patient denies any suicidal or homical ideations, intent or plan. Patient has been taking her medications Mental Status Exam: General Appearance: Patient appears to be stated age is alert, directable, and attempts to cooperate. no paranoia today. patient appears to have only improving hygiene and grooming. Behavior: Patient is seated without any agitated behavior. Attempts to be Cooperative today. Speech: Patient's speech is nonpressured improving mildly Mood/Affect: Patient reports their mood is "anxious but better", affect is congruent Suicidality/Homicidality: Patient denies having any homicidal ideation intent or plan. Denies any suicidal ideations intent or plan Perceptions: Patient denies any visual hallucinations and claims to be hearing voices which are not improving. Though content/process: Patient is more logical today, paranoia. concrete Memory and concentration: AOX3, grossly intact for the purposes of this session Judgment and insight: poor, improving mildly IMPRESSIONS: Psychosis unspecified Cannabis use disorder Nicotine dependence Plan: -Patient continues to meet criteria for inpatient psychiatric admission for symptom stabilization and safety. Patient has not signed adult voluntary form and medication consent and was placed in patient's chart. patient signed deferral after speaking with her disability attorney. -Medications: increase seroquel 75 mg qhs for psychosis/insomnia. continue r emeron 15 mg qhs to prn for insomnia. added benadryl 25 mg bid prn for cold sx. -When necessary Ativan and Haldol for agitation/aggression. -NRT - nicotine patch -SW on board for discharge planning. Encouraged the patient to participate in milieu. patient deferred with her disability attorney. patient is still having psychotic sx including some paranoia, hallucinations and possile discharge early next week if patient improves.
[2022-11-03] MEDS: QUEtiapine 25 MG TAB PO SCH (20:34)
[2022-11-04] MEDS ORDERED: HYDROCORTISONE 1% OINT 28.35 GM TUBE TOPICAL PRN (13:45)
[2022-11-04] MEDS: NICOTINE GUM (POLACRILEX) 2 MG GUM BUCCAL PRN ×2 (15:18→21:08)
[2022-11-04] MEDS: QUEtiapine 25 MG TAB PO SCH (21:08)
[2022-11-04] MEDS: LORazepam 1 MG TAB PO PRN (21:09)
[2022-11-04] MEDS: diphenhydrAMINE 25 MG CAP PO PRN (21:09)
[2022-11-04] MEDS: MIRTAZAPINE 15 MG TAB PO PRN (21:09)
[2022-11-05 06:55] VITALS: BP 121/82; PULSE 97; TEMP 97.7
[2022-11-05] MEDS: NICOTINE GUM (POLACRILEX) 2 MG GUM BUCCAL PRN ×2 (06:57→20:10)
--- NOTE | 2022-11-05 12:29 | P.PN ---
Progress Note - Text Progress Note Date: 11/04/22 Interval history: I evaluated patient on 11/04/22. Patient was seen sitting on her bed in her room and appeared superficially cooperative and agreeable to speak with this screenplay writer. She reports good mood and sleep. She is recorded as sleeping 7 hours last night. Her insight is limited, she appears to minimize her psychosis and reason for admission. She claims she is not hearing any voices, however at the end of the assessment she appears to mumble something to herself and when asked what she is saying she states nothing. At this time, patient denies any suicidal or homicidal ideation, intent or plan. Denies any visual hallucinations. Patient denies any side effects from the medications and has been compliant with meds. She has what appears to be a red rash on her face, which she states is normal for her and she has a history of rosacea. She looks in the mirror and confirms she has a chronic history of this redness. She denies rash anywhere else on her body. Mental status exam: General Appearance: Patient appears to be stated age, +rosacea on face, dressed in white camisole and shorts Behavior: No agitated behavior. Patient appears superficially cooperative, calm. Speech: Patient's speech is fluent and non-pressured. Mood/Affect: Mood is improving mildly, affect is congruent and constricted. Suicidality/Homicidality: Patient denies having any suicidal or homicidal ideation intent or plan. Perceptions: Patient denies any auditory or visual hallucinations. Appears to mumble something to herself but she denies this when asked. Though content/process: There is no evidence of any delusional thought content and thought process is linear and goal-directed. Memory and concentration: AOX3, grossly intact for the purposes of this session Judgment and insight: limited Assessment/Plan: Continue with current diagnosis. Patient continues to meet criteria for inpatient psychiatric admission for symptom stabilization and safety. Patient will be maintained on current psychotropic medication regimen. Monitor for medication compliance and for any psychotropic medication side effects. Will continue to monitor ongoing response to treatment. Encouraged participation in milieu.
--- NOTE | 2022-11-05 16:42 | P.MDCNMH ---
<Minh Carmen - Last Filed: 11/05/22 16:28> History of Present Illness H&P Date: 11/05/22 History of Presenting Illness: Patient is a very pleasant 37-year-old female with a past medical history of pso riasis, chronic fatigue syndrome, nicotine dependence via vaping, and cannabis use disorder. She is currently admitted to inpatient psychiatric unit for psychosis and we were consulted for medical evaluation. Initially upon admission, hospitalist attempted to complete medical consult on 2 consecutive days but patient refused each time. Received notification from mental health unit patient now willing to talk with hospitalist group and requesting something for her psoriatic rash. Went to mental health unit to evaluate patient. Patient was calm and cooperative. She currently denies having any visual, auditory, or tactile hallucinations at this time. She denies having any suicidal or homicidal ideations. Patient reports psoriatic rash to right hand and elbow and upon evaluation raised red scaly rash was noted. Patient reports mild discomfort and itching with rash, she also reports that she started her menstrual cycle earlier today and is having some abdominal cramps. Review of systems: Pertinent positives and negatives as discussed in HPI, a complete review of systems was performed and all other systems are negative. Physical exam: Vital signs reviewed and stable. General: Nontoxic, no distress and appears stated age. Derm: Skin warm and dry, normal coloration for ethnicity. Psoriatic rash dorsal surface of right hand and left elbow Head: Atraumatic, normocephalic and symmetric. Eyes: EOMs intact, no lid lag, and anicteric sclera Mouth: no lip lesions, mucus membranes moist Cardiovascular: regular rate and rhythm with normal S1S2, no murmur, positive posterior tibial pulses bilaterally, and cap refill < 2 seconds. Lungs: Respirations even, regular, and unlabored on room air. Lungs CTA bilaterally, no rhonchi, no rales, no wheezing, and no accessory muscle usage. Abdominal: soft, nontender to palpation, no guarding, no appreciable organomegaly Ext: ROM intact. No gross muscle atrophy, no edema, no contractures Neuro: Speech clear, face symmetrical and CN II-XII grossly intact with no noted focal neuro deficits Psych: Alert and oriented to person, place, time, and situation. Appropriate and pleasant affect. Assessment and Plan of Care: Psoriasis flare with psoriatic rash to dorsal surface of right hand and left elbow -Ordered hydrocortisone 1% ointment for patient to apply to affected areas 3 times daily as needed. Menstrual cramps -Motrin 600 mg every 8 hours as needed for mild discomfort and pain. History of psoriasis History of chronic fatigue syndrome -Patient reports extensive history of inflammatory issues, discussed these with her and recommend outpatient follow-up with credit investigator for further testing and evaluation of possible autoimmune disorders. Psychosis -Management per primary admitting psychiatric team. -Provide safe and supportive care. Thank you for allowing us to participate in the care of this pleasant patient. Do not hesitate to contact us with questions. Someone can be reached from the [facility] hospitalist group all hours of the day at [phone] or via [employer]. Past Medical History Past Medical History: Unable to Obtain Additional Past Medical History / Comment(s): Reports a history of chronic fa tigue syndrome and abdominal pain when eating red meat. History of Any Multi-Drug Resistant Organisms: Unobtainable Past Surgical History: Unable to Obtain Additional Past Surgical History / Comment(s): Denies surigical HX Past Anesthesia/Blood Transfusion Reactions: No Reported Reaction Smoking Status: Vaper Medications and Allergies Home Medications Medication Instructions Recorded Confirmed Type Hydrocortisone Oint 1 applic TOPICAL TID PRN each 11/06/22 Rx [Hydrocortisone 1% Oint] Ibuprofen [Motrin] 600 mg PO Q8H PRN 30 Days #90 tab 11/06/22 Rx Mirtazapine [Remeron] 15 mg PO HS PRN 30 Days #30 tab 11/06/22 Rx Nicotine Gum (Polacrilex) 2 mg BUCCAL Q4HR PRN 30 Days #180 11/06/22 Rx [Nicorette] pieceofgum QUEtiapine [SEROquel] 75 mg PO HS 30 Days #90 tab 11/06/22 Rx Allergies Allergy/AdvReac Type Severity Reaction Status Date / Time latex Allergy Unknown Rash/Hives Verified 10/20/22 12:47 prednisone AdvReac Hallucinati Verified 10/20/22 12:47 ons Physical Exam Vitals: Vital Signs Temp Pulse Resp BP Pulse Ox 11/05/22 06:55 97.7 F 97 16 121/82 99 Intake and Output 11/05/22 11/05/22 11/05/22 06:59 14:59 22:59 Other: Weight 72.4 kg Cranial Nerve Examination - Cranial Nerves Cranial Nerve II- Optic: Intact Cranial Nerve III- Oculomotor: Intact Cranial Nerve IV- Trochlear: Intact Cranial Nerve V- Trigeminal: Intact Cranial Nerve - Abducens: Intact Cranial Nerve VII- Facial: Intact Cranial Nerve VIII- Auditory: Intact Cranial Nerve IX- Glossopharyngeal: Intact Cranial Nerve X- Vagus: Intact Cranial Nerve XI- Accessory: Intact Cranial Nerve XII- Hypoglossal: Intact Results CBC & Chem 7: 11/03/22 10:50 11/03/22 10:50 <Nitza Meyers - Last Filed: 11/06/22 16:53> History of Present Illness I reviewed the documentation as provided by the EMMANUEL above, who is the original author of this note. I agree with the documented assessment and plan, with the following changes: none Results CBC & Chem 7: 11/03/22 10:50 11/03/22 10:50
--- NOTE | 2022-11-05 20:22 | P.PN ---
Progress Note - Text Progress Note Date: 11/05/22 Interval history: I evaluated patient on 11/05/22. Patient was seen finishing her lunch and appeared superficially cooperative and agreeable to speak with this magazine writer. She reports good mood and sleep. She is recorded as sleeping 7 hours again last night; received PRN Ativan 1 mg po x 1 and Benadryl 25 mg po x 1, she reports she requested these because of her cold and not because she needed help sleeping. Her insight continues to be limited, she appears to minimize her psyc hosis and reason for admission. She continues to isolate to her room, sits on her bed in the dark staring, keeps to herself, has attended only one group so far this weekend, is avoiding most group activities. She again claims she is not hearing any voices, however she appears to be staring off into the distance at several times during the day, appears internally preoccupied, appears to be experiencing auditory hallucinations however continues to deny AH. When asked about this, she appears dismissive and states she is just "thinking about home" and will "drift off into things". She claims she was previously experiencing "dream like states" while awake when she was admitted, however now she claims she "feels more focused" and her "brain is cleared", but objectively she appears to still be attending to internal stimuli which she is trying to downplay. We discussed again increasing her Seroquel but she refuses and becomes argumentative. At this time, patient denies any suicidal or homicidal ideation, intent or plan. Patient denies any side effects from the medications and has been compliant with meds, however when asked which medications she is prescribed she states she does not know which meds she takes or what they are used for. Mental status exam: General Appearance: Patient appears to be stated age, + rosacea on face, dressed in sweats, fair hygiene. Behavior: No agitated behavior. Patient appears superficially cooperative. Mostly spends the day sitting on her bed in the dark staring; avoids groups. Speech: Patient's speech is fluent and non-pressured. Mood/Affect: Mood is improving mildly, affect is blunted. Suicidality/Homicidality: Patient denies having any suicidal or homicidal ideation intent or plan. Perceptions: Patient denies any auditory or visual hallucinations, however she appears internally preoccupied and attending to internal stimuli. Though content/process: There is some evidence of delusional thought content, can be argumentative and minimizes her psychotic symptoms. Thought process is generally linear but also derails. Memory and concentration: AOX3, grossly intact for the purposes of this session Judgment and insight: limited Assessment/Plan: Continue with current diagnosis. Patient continues to meet criteria for inpatient psychiatric admission for symptom stabilization and safety. Patient will be maintained on current psychotropic medication regimen. I have recommended increasing her Seroquel for psychosis however she continues to refuse. Monitor for medication compliance and for any psychotropic medication side effects. Will continue to monitor ongoing response to treatment. Encouraged participation in milieu.
[2022-11-05] MEDS: QUEtiapine 25 MG TAB PO SCH (20:30)
[2022-11-06] MEDS: NICOTINE GUM (POLACRILEX) 2 MG GUM BUCCAL PRN (10:01)
[2022-11-06] MEDS ORDERED: LOPERAMIDE 2 MG CAP PO PRN (10:45)
[2022-11-06] MEDS: IBUPROFEN 600 MG TAB PO PRN (10:56)
--- NOTE | 2022-11-06 13:15 | P.DS ---
Providers Date of admission: 10/24/22 08:57 Expected date of discharge: 11/06/22 Attending physician: Dennis Patino MD Consults: 10/24/22 05:16 Consult Physician Routine Consulting Provider: Pradeep Morfin Consult Reason/Comments: For H & P for Medical Follow Up Do you want consulting provider notified?: Yes Primary care physician: Zahida Pearce - Discharge Diagnosis(es) (1) Unspecified psychosis Current Visit: Yes Status: Acute Priority: High (2) Cannabis use disorder Current Visit: Yes Status: Acute Priority: Medium (3) Nicotine dependence Current Visit: Yes Status: Acute Priority: Low Hospital Course: Admission HPI: Admission note was completed by [mortgage underwriter] "Patient is a 37-year-old female, currently lives with her boyfriend in a house, 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 Patient presented to the hospital yesterday as a transfer from [facility]. Patient was recently discharged from the mental health unit as she signed AMA on 10/20. As per physician which was completed by registered nurse at [facility] states that "Caty stated she hasn't slept in 3 days. She admits to hearing voices but unable to express what the voices are saying." "Caty may or may not be taking her prescribed meds as told by her boyfriend to [facility] assistant case manager. She has been giving inconsistent stories to staff and [facility] assistant case manager". The patient was seen today sitting in her room looking at the wall and was agreeable to speak a mortgage underwriter. Patient was fairly bizarre in her thought process and also very delayed answers to questions by mortgage underwriter during the interview. Patient appeared to have very poor understanding of her mental illness and need for hospitalization. She states that "I just want my sleeping medications than all leave". She written several times to sign AMA once again and go home. She appears to have very poor insight and judgment. She states that she has not slept in 3 days. She claims that "my boyfriend was worried about me" and states that she was hostile with him as well. She states that she is not feeling depressed or anxious at this time. She claims that she was having "lucid dreams" and claims that she was hearing voices during these dreams. She claims that her appetite is fair. Denying any paranoia. Patient denies any suicidal or homicidal ideations intent or plan. At this time patient denies any auditory or visual hallucinations. Patient denies any flight of ideas racing thoughts and increased in goal directed behavior. Patient admits to using nicotine products, marijuana occasionally, denying any other recreational drug use." Hospital course: Upon admission to the unit patient was admitted involuntarily and ended up deferring with her managing attorney and continued on with her mental health treatment. Patient was initially fairly isolative however with treatment in time she got along well with other patients on the unit and followed unit protocol. Patient was started on different medications including invega and abilify and geodon however had significant side effects and wanted to be switched back onto seroquel. she was compliant with the medications and denied any side effects throughout hospital course. Patient was started on [seroquel and increased to a dose of 75 mg qhs for insomnia/psychosis, remeron 15 mg qhs prn for insomnia]. Patient spoke of her stressors and engaged in therapy both group and individual. Patient was also seen by medical team for history and physical exam. [] Throughout the course of the hospitalization patient gradually improved with regards to [mood, anxiety], psychosis/hallucinations, sleep and [returned back to their baseline level of functioning]. On the day of discharge patient denied any suicidal or homicidal ideations intent or plan denied any auditory or visual hallucinations. Patient endorsed wanting to live for her health and future. The patient denied any access to guns or weapons. Patient denied any paranoia and did not endorse any delusions. Patient does have a significant history of substance abuse [and] was counseled on abstaining from all substances including alcohol and marijuana. [Patient elected to do outpatient substance use treatment program through [facility].] Patient was also counseled on the medications and need for regular compliance and was encouraged to follow-up with their outpatient appointment for mental health and also for primary care. [Prior to discharge a family meeting will be arranged by director of social services to answer any questions and ensure safety upon discharge.] Mental status exam: General Appearance: Patient appears to be []stated age is alert, pleasant, and cooperative. Patient is in no acute distress and has improved hygiene and grooming Behavior: Patient is calmly seated without any agitated behavior. cooperative. Speech: Patient's speech is fluent and nonpressured. Mood/Affect: Patient reports their mood is "[ok]", affect is congruent and euthymic. Suicidality/Homicidality: Patient denies having any suicidal or homicidal ideation intent or plan. Perceptions: Patient denies any auditory or visual hallucinations. Though content/process: There is no evidence of any delusional thought content and thought process is linear and goal-directed. [more future oriented] Memory and concentration: AOX3, grossly intact for the purposes of this session. Can spell "WORLD" backwards correctly. Judgment and insight: [chronically poor, however has] improved with guarded prognosis Impression: []Unspecified psychosis Cannabis use disorder [Nicotine dependence] Plan: -Continue with discharge today as patient has improved and stabilized psychiatrically and is not currently an imminent threat to [herself] and/or others. [Patient will remain at chronically elevated risk for harm to self and/or others due to her impulsivity and substance abuse.] -Continue medications: []seroquel 75 mg qhs for insomnia/psychosis, remeron 15 mg prn for insomnia. -Patient was counseled on the need for medication compliance and appropriate follow-up at mental health and also primary care for medical issues. Patient verbalized understanding and agreed. -Social work to [arrange for and conduct family meeting to ensure safety upon discharge and answer any questions/concerns.] Social work also to arrange for patients follow up appointments [with [facility]] for psychiatric care along with follow up with primary care provider. -Patient counseled on abstaining from recreational drugs and marijuana and alcohol. Was informed/educated on the adverse effects on their physical and mental health. [Patient verbally agreed and understood]. -Patient was instructed to return to the hospital or seek immediate medical care if their psychiatric or medical symptoms do worsen or reoccur. Vital Signs Temp 97.7 F 11/05/22 06:55 Pulse 97 11/05/22 06:55 Resp 16 11/05/22 06:55 BP 121/82 11/05/22 06:55 Pulse Ox 99 11/05/22 06:55 FiO2 Intake & Output 11/05/22 11/06/22 11/06/22 18:59 06:59 18:59 Weight 72.4 kg Allergies Allergy/AdvReac Type Severity Reaction Status Date / Time latex Allergy Unknown Rash/Hives Verified 10/20/22 12:47 prednisone AdvReac Hallucinati Verified 10/20/22 12:47 ons Laboratory Results WBC 7.6 k/uL (3.8-10.6) 11/03/22 10:50 RBC 4.45 m/uL (3.80-5.40) 11/03/22 10:50 Hgb 13.8 gm/dL (11.4-16.0) 11/03/22 10:50 Hct 39.9 % (34.0-46.0) 11/03/22 10:50 MCV 89.7 fL (80.0-100.0) 11/03/22 10:50 MCH 31.1 pg (25.0-35.0) 11/03/22 10:50 MCHC 34.6 g/dL (31.0-37.0) 11/03/22 10:50 RDW 13.4 % (11.5-15.5) 11/03/22 10:50 Plt Count 201 k/uL (150-450) 11/03/22 10:50 MPV 9.6 11/03/22 10:50 Neutrophils % 72 % 11/03/22 10:50 Lymphocytes % 21 % 11/03/22 10:50 Monocytes % 4 % 11/03/22 10:50 Eosinophils % 1 % 11/03/22 10:50 Basophils % 0 % 11/03/22 10:50 Neutrophils # 5.4 k/uL (1.3-7.7) 11/03/22 10:50 Lymphocytes # 1.6 k/uL (1.0-4.8) 11/03/22 10:50 Monocytes # 0.3 k/uL (0-1.0) 11/03/22 10:50 Eosinophils # 0.1 k/uL (0-0.7) 11/03/22 10:50 Basophils # 0.0 k/uL (0-0.2) 11/03/22 10:50 Sodium 138 mmol/L (137-145) 11/03/22 10:50 Potassium 4.0 mmol/L (3.5-5.1) 11/03/22 10:50 Chloride 106 mmol/L (98-107) 11/03/22 10:50 Carbon Dioxide 25 mmol/L (22-30) 11/03/22 10:50 Anion Gap 7 mmol/L 11/03/22 10:50 BUN 6 mg/dL (7-17) L 11/03/22 10:50 Creatinine 0.50 mg/dL (0.52-1.04) L 11/03/22 10:50 Est GFR (CKD-EPI)AfAm >90 (>60 ml/min/1.73 sqM) 11/03/22 10:50 Est GFR (CKD-EPI)NonAf >90 (>60 ml/min/1.73 sqM) 11/03/22 10:50 Glucose 139 mg/dL (74-99) H 11/03/22 10:50 POC Glucose (mg/dL) 119 mg/dL (70-110) H 10/27/22 02:10 POC Glu Body Former Minh Bird 10/27/22 02:10 Calcium 8.8 mg/dL (8.4-10.2) 11/03/22 10:50 Total Bilirubin 0.9 mg/dL (0.2-1.3) 11/01/22 11:41 AST 40 U/L (14-36) H 11/01/22 11:41 ALT 59 U/L (4-34) H 11/01/22 11:41 Alkaline Phosphatase 73 U/L (38-126) 11/01/22 11:41 Total Protein 6.3 g/dL (6.3-8.2) 11/01/22 11:41 Albumin 3.6 g/dL (3.5-5.0) 11/01/22 11:41 Coronavirus (PCR) Not Detected (Not Detectd) 11/03/22 10:36 Patient Condition at Discharge: Stable Plan - Discharge Summary Discharge Rx Participant: No New Discharge Prescriptions: New Nicotine Gum (Polacrilex) [Nicorette] 2 mg BUCCAL Q4HR PRN 30 Days #180 pieceofgum PRN Reason: Nicotine Cravings Hydrocortisone Oint [Hydrocortisone 1% Oint] 1 applic TOPICAL TID PRN each PRN Reason: Skin Irritation Ibuprofen [Motrin] 600 mg PO Q8H PRN 30 Days #90 tab PRN Reason: Moderate To Severe Pain (4-10) Mirtazapine [Remeron] 15 mg PO HS PRN 30 Days #30 tab PRN Reason: Insomnia QUEtiapine [SEROquel] 75 mg PO HS 30 Days #90 tab Discontinued Sulfamethox-Tmp 800-160Mg [Bactrim DS 800-160 mg] 1 each PO BID 3 Days #5 tab Prazosin [Minipress] 1 mg PO HS 30 Days #30 cap QUEtiapine [SEROquel] 50 mg PO HS 30 Days #30 tab Discharge Medication List Hydrocortisone Oint [Hydrocortisone 1% Oint] 1 applic TOPICAL TID PRN each 11/06/22 [Rx] Ibuprofen [Motrin] 600 mg PO Q8H PRN 30 Days #90 tab 11/06/22 [Rx] Mirtazapine [Remeron] 15 mg PO HS PRN 30 Days #30 tab 11/06/22 [Rx] Nicotine Gum (Polacrilex) [Nicorette] 2 mg BUCCAL Q4HR PRN 30 Days #180 pieceofgum 11/06/22 [Rx] QUEtiapine [SEROquel] 75 mg PO HS 30 Days #90 tab 11/06/22 [Rx] Follow up Appointment(s)/Referral(s): [facility] [Outside] - 11/09/22 9:00 am (with [facility]) Zahida Pearce DO [Primary Care Provider] - 1 Week Patient Instructions/Handouts: How to Stop Smoking (DC), Brief Psychotic Disorder (DC), Post Traumatic Stress Disorder (DC) Activity/Diet/Wound Care/Special Instructions: Avoid the use of street drugs and alcohol. Take all medications as prescribed. When you are in need of refills on your medications, please contact your medical provider and/or outpatient psychiatrist to have this done. Please go to scheduled outpatient appointments for aftercare treatment. If symptoms return or become worse, call the crisis line at and/or go to the nearest emergency room for evaluation. Discharge Disposition: HOME SELF-CARE
== END 2022-11-06 16:56 | disposition home or self-care (01) | DRG 753 ==
LOC: 3MHU 08:57
PROVIDERS: ADMIT Psychiatry & Neurology Psychiatry; ATTEND Psychiatry & Neurology Psychiatry
DX: F31.5 Bipolar disorder, current episode depressed, severe, with psychotic features (principal); F12.10 Cannabis abuse, uncomplicated; F17.290 Nicotine dependence, other tobacco product, uncomplicated; Z71.51 Drug abuse counseling and surveillance of drug abuser; R25.2 Cramp and spasm; G47.00 Insomnia, unspecified; L40.9 Psoriasis, unspecified; Z71.3 Dietary counseling and surveillance; Z28.310 Unvaccinated for COVID-19; Z20.822 Contact with and (suspected) exposure to COVID-19; Z28.21 Immunization not carried out because of patient refusal; Z56.0 Unemployment, unspecified; Z88.8 Allergy status to other drugs, medicaments and biological substances; Z91.040 Latex allergy status
CPT/HCPCS: 80048; 80053; 85025; 87635; 93005

== ENCOUNTER 2023-01-02 10:21 | Emergency (ER) | payer OTHER ==
[2023-01-02] MEDS ORDERED: IBUPROFEN 600 MG TAB PO STA (10:58)
[2023-01-02] MEDS ORDERED: ACETAMINOPHEN TAB 325 MG TAB PO STA (10:58)
[2023-01-02] MEDS ORDERED: IPRATROPIUM-ALBUTEROL 3 ML NEB INHALATION STA (10:58)
--- NOTE | 2023-01-02 11:32 | XR ---
EXAMINATION TYPE: XR chest 2V DATE OF EXAM: 01/02/2023 COMPARISON: NONE HISTORY: Shortness of breath. TECHNIQUE: Frontal and lateral views of the chest are obtained. FINDINGS: There is no focal air space opacity, pleural effusion, or pneumothorax seen. The cardiac silhouette size is within normal limits. The osseous structures are intact. IMPRESSION: No acute cardiopulmonary process.
--- NOTE | 2023-01-02 12:32 | ED ---
ENT HPI - General Chief complaint: ENT Stated complaint: All over body pain Time Seen by Provider: 01/02/23 10:35 Source: patient, RN notes reviewed Mode of arrival: ambulatory Limitations: no limitations - History of Present Illness Initial comments: 37-year-old female presents emergency Department chief complaint of cough and cold like symptoms. Patient states she's been sick for 4 days patient claims a sore throat, productive cough, shortness of breath. Patient states she's had body aches, chills or sweats. No reported fever. Patient doesn't that she papers denies any history of asthma or COPD. She states her mother is sick some similar symptoms. - Related Data Previous Rx's Medication Instructions Recorded Hydrocortisone Oint 1 applic TOPICAL TID PRN each 11/06/22 [Hydrocortisone 1% Oint] Ibuprofen [Motrin] 600 mg PO Q8H PRN 30 Days #90 tab 11/06/22 Mirtazapine [Remeron] 15 mg PO HS PRN 30 Days #30 tab 11/06/22 Nicotine Gum (Polacrilex) 2 mg BUCCAL Q4HR PRN 30 Days #180 11/06/22 [Nicorette] pieceofgum QUEtiapine [SEROquel] 75 mg PO HS 30 Days #90 tab 11/06/22 Albuterol Inhaler [Ventolin Hfa 1 - 2 puff INHALATION Q6H PRN #1 01/02/23 Inhaler] each Allergies Allergy/AdvReac Type Severity Reaction Status Date / Time latex Allergy Unknown Rash/Hives Verified 01/02/23 10:28 prednisone AdvReac Hallucinati Verified 01/02/23 10:28 ons Review of Systems ROS Statement: Those systems with pertinent positive or pertinent negative responses have been documented in the HPI. ROS Other: All systems not noted in ROS Statement are negative. Past Medical History Past Medical History: Unable to Obtain Additional Past Medical History / Comment(s): Reports a history of chronic fatigue syndrome and abdominal pain when eating red meat. History of Any Multi-Drug Resistant Organisms: Unobtainable Past Surgical History: Unable to Obtain Additional Past Surgical History / Comment(s): Denies surigical HX Past Anesthesia/Blood Transfusion Reactions: No Reported Reaction Past Psychological History: Unable to Obtain Smoking Status: Vaper Past Alcohol Use History: None Reported Past Drug Use History: None Reported General Exam Limitations: no limitations General appearance: alert, in no apparent distress Head exam: Present: atraumatic, normocephalic, normal inspection Eye exam: Present: normal appearance, PERRL, EOMI. Absent: scleral icterus, conjunctival injection, periorbital swelling ENT exam: Present: mucous membranes moist. Absent: normal exam, normal oropharynx (Mild erythema posterior pharynx) Neck exam: Present: normal inspection, full ROM. Absent: tenderness, meningismus, lymphadenopathy Respiratory exam: Present: wheezes. Absent: normal lung sounds bilaterally, respiratory distress, rales, rhonchi, stridor Cardiovascular Exam: Present: regular rate, normal rhythm, normal heart sounds. Absent: systolic murmur, diastolic murmur, rubs, gallop, clicks Course Vital Signs 01/02/23 01/02/23 01/02/23 10:26 12:32 12:44 Temperature 98 F Pulse Rate 71 72 72 Respiratory 18 Rate Blood Pressure 127/80 O2 Sat by Pulse 98 Oximetry Medical Decision Making - Medical Decision Making Was pt. sent in by a medical professional or institution (Dr. PA, MANAGER SUPPORT, urgent care, hospital, or fdc...) When possible be specific @ -No Did you speak to anyone other than the patient for history (EMS, parent, family, police, friend...)? What history was obtained from this source @ -No Did you review nursing and triage notes (agree or disagree)? Why? @ -I reviewed and agree with nursing and triage notes Were old charts reviewed (outside hosp., previous admission, EMS record, old EKG, old radiological studies, urgent care reports/EKG's, fdc records)? Report findings @ -No old charts were reviewed Differential Diagnosis (chest pain, altered mental status, abdominal pain women, abdominal pain men, vaginal bleeding, weakness, fever, dyspnea, syncope, headache, dizziness, GI bleed, back pain, seizure, CVA, palpatations, mental health, musculoskeletal)? @ -URI, covid, influenza, pneumonia, viral infection, EKG interpreted by me (3pts min.). @ -None X-rays interpreted by me (1pt min.). @ -Chest x-ray shows no acute process CT interpreted by me (1pt min.). @ -None done U/S interpreted by me (1pt. min.). @ -None done What testing was considered but not performed or refused? (CT, X-rays, U/S, labs)? Why? @ -None What meds were considered but not given or refused? Why? @ -None Did you discuss the management of the patient with other professionals (professionals i.e. , PA, MANAGER SUPPORT, lab, RT, psych nurse, social director, patient liaison, teacher, president and chief commercial officer, home health care case manager)? Give summary @ -No Was smoking cessation discussed for >3mins.? @ -No Was critical care preformed (if so, how long)? @ -No Were there social determinants of health that impacted care today? How? (Homelessness, low income, unemployed, alcoholism, drug addiction, transportation, low edu. Level, literacy, decrease access to med. care, detention, rehab)? @ -No Was there de-escalation of care discussed even if they declined (Discuss DNR or withdrawal of care, Hospice)? DNR status @ -No What co-morbidities impacted this encounter? (DM, HTN, Smoking, COPD, CAD, Cancer, CVA, ARF, Chemo, Hep., AIDS, mental health diagnosis, sleep apnea, morbid obesity)? @ -None Was patient admitted / discharged? Hospital course, mention meds given and route, prescriptions, significant lab abnormalities, going to OR and other pertinent info. @ -Discharge patient has a viral URI negative swab, negative x-ray patient was given DuoNeb treatment for her mild wheezing patient be discharged with albuterol inhaler Undiagnosed new problem with uncertain prognosis? @ -No Drug Therapy requiring intensive monitoring for toxicity (Heparin, Nitro, Insulin, Cardizem)? @ -No Were any procedures done? @ -No Diagnosis/symptom? @ -Viral URI Acute, or Chronic, or Acute on Chronic? @ -Acute Uncomplicated (without systemic symptoms) or Complicated (systemic symptoms)? @ -Uncomplicated Side effects of treatment? @ -No Exacerbation, Progression, or Severe Exacerbation? @ -No Poses a threat to life or bodily function? How? (Chest pain, [place], [place], pneumonia, PE, COPD, DKA, ARF, appy, cholecystitis, CVA, Diverticulitis, Homicidal, Suicidal, threat to staff... and all critical care pts) @ -No - Lab Data Lab Results 01/02/23 01/02/23 Range/Units 11:00 11:09 Influenza Type A (PCR) Not Detected (Not Detectd) Influenza Type B (PCR) Not Detected (Not Detectd) RSV (PCR) Not Detected (Not Detectd) SARS-CoV-2 (PCR) Not Detected (Not Detectd) Group A Strep (PCR) NOT DETECTED (Not Detectd) Disposition Clinical Impression: Viral URI Disposition: HOME SELF-CARE Condition: Stable Instructions (If sedation given, give patient instructions): Upper Respiratory Infection (ED) Additional Instructions: Please return to the Emergency Department if symptoms worsen or any other concerns. Prescriptions: Albuterol Inhaler [Ventolin Hfa Inhaler] 1 - 2 puff INHALATION Q6H PRN #1 each PRN Reason: Shortness Of Breath Is patient prescribed a controlled substance at d/c from ED?: No Referrals: Zahida Pearce DO [Primary Care Provider] - 1-2 days Time of Disposition: 12:53
[2023-01-02 13:09] VITALS: BP 114/72; PULSE 81; RESP 16; TEMP 98.1
== END 2023-01-02 13:09 | disposition home or self-care (01) ==
LOC: EC 10:21
DX: J06.9 Acute upper respiratory infection, unspecified (principal); F17.290 Nicotine dependence, other tobacco product, uncomplicated; Z20.822 Contact with and (suspected) exposure to COVID-19; Z88.8 Allergy status to other drugs, medicaments and biological substances; Z91.040 Latex allergy status
CPT/HCPCS: 71046; 87636; 87651; 94640; 99284

== ENCOUNTER 2023-02-17 09:52 | Inpatient (IN) | payer MEDICAID, OTHER ==
--- NOTE | 2023-02-17 11:45 | ED ---
Psych HPI - General Chief Complaint: Psychiatric Symptoms Stated Complaint: mental health Time Seen by Provider: 02/17/23 09:55 Source: patient, police, RN notes reviewed Mode of arrival: ambulatory Limitations: no limitations - History of Present Illness Initial Comments: 37-year-old female presents emergency Department with police for psychiatric evaluation. Patient was picked up on a pickup order. Patient reportedly has missed her appointments. It is unclear if she is taking her current medications are none. She denies any suicidal or homicidal there is reports that she's been hallucinating. She does have an extensive psychiatric history. - Related Data Home Medications Medication Instructions Recorded Confirmed Mirtazapine [Remeron] 15 mg PO HS 02/17/23 02/17/23 Previous Rx's Medication Instructions Recorded Ibuprofen [Motrin] 600 mg PO Q8H PRN 30 Days #90 tab 11/06/22 QUEtiapine [SEROquel] 75 mg PO HS 30 Days #90 tab 11/06/22 Allergies Allergy/AdvReac Type Severity Reaction Status Date / Time latex Allergy Unknown Rash/Hives Verified 02/17/23 11:13 prednisone AdvReac Hallucinati Verified 02/17/23 11:13 ons Review of Systems ROS Statement: Those systems with pertinent positive or pertinent negative responses have been documented in the HPI. ROS Other: All systems not noted in ROS Statement are negative. Past Medical History Past Medical History: Unable to Obtain Additional Past Medical History / Comment(s): Reports a history of chronic fatigue syndrome and abdominal pain when eating red meat. History of Any Multi-Drug Resistant Organisms: Unobtainable Past Surgical History: Unable to Obtain Additional Past Surgical History / Comment(s): Denies surigical HX Past Anesthesia/Blood Transfusion Reactions: No Reported Reaction Past Psychological History: Unable to Obtain Smoking Status: Vaper Past Alcohol Use History: None Reported Past Drug Use History: None Reported General Exam Limitations: no limitations General appearance: alert, in no apparent distress Head exam: Present: atraumatic, normocephalic, normal inspection Eye exam: Present: normal appearance, PERRL, EOMI. Absent: scleral icterus, conjunctival injection, periorbital swelling ENT exam: Present: normal exam, normal oropharynx, mucous membranes moist Neck exam: Present: normal inspection, full ROM. Absent: tenderness, meningismus, lymphadenopathy Respiratory exam: Present: normal lung sounds bilaterally. Absent: respiratory distress, wheezes, rales, rhonchi, stridor Cardiovascular Exam: Present: regular rate, normal rhythm, normal heart sounds. Absent: systolic murmur, diastolic murmur, rubs, gallop, clicks Neurological exam: Present: alert Psychiatric exam: Present: flat affect Skin exam: Present: warm, dry, intact, normal color. Absent: rash Course Vital Signs 02/17/23 09:57 Temperature 98.2 F Pulse Rate 82 Respiratory 20 Rate Blood Pressure 117/84 O2 Sat by Pulse 98 Oximetry Medical Decision Making - Medical Decision Making Was pt. sent in by a medical professional or institution (ANDRE Scruggs, DEPUTY GENERAL COUNSEL, urgent care, hospital, or assisted...) When possible be specific @ -No Did you speak to anyone other than the patient for history (EMS, parent, family, police, friend...)? What history was obtained from this source @ -Police who brought patient providing petition Did you review nursing and triage notes (agree or disagree)? Why? @ -I reviewed and agree with nursing and triage notes Were old charts reviewed (outside hosp., previous admission, EMS record, old EKG, old radiological studies, urgent care reports/EKG's, assisted records)? Report findings @ -No old charts were reviewed Differential Diagnosis (chest pain, altered mental status, abdominal pain women, abdominal pain men, vaginal bleeding, weakness, fever, dyspnea, syncope, headache, dizziness, GI bleed, back pain, seizure, CVA, palpatations, mental health, musculoskeletal)? @ -Depression, schizophrenia, bipolar disorder, anxiety EKG interpreted by me (3pts min.). @ -As above X-rays interpreted by me (1pt min.). @ -None done CT interpreted by me (1pt min.). @ -None done U/S interpreted by me (1pt. min.). @ -None done What testing was considered but not performed or refused? (CT, X-rays, U/S, labs)? Why? @ -None What meds were considered but not given or refused? Why? @ -None Did you discuss the management of the patient with other professionals (professionals i.e. ANDRE Scruggs, DEPUTY GENERAL COUNSEL, lab, RT, psych nurse, social worker assistant, level vial inspector and tester, teacher, ski patrol officer, catalytic case operator)? Give summary @ -EPS, psychiatrist evaluated patient recommend inpatient treatment Was smoking cessation discussed for >3mins.? @ -No Was critical care preformed (if so, how long)? @ -No Were there social determinants of health that impacted care today? How? (Homelessness, low income, unemployed, alcoholism, drug addiction, transportation, low edu. Level, literacy, decrease access to med. care, long-term, rehab)? @ -No Was there de-escalation of care discussed even if they declined (Discuss DNR or withdrawal of care, Hospice)? DNR status @ -No What co-morbidities impacted this encounter? (DM, HTN, Smoking, COPD, CAD, Cancer, CVA, ARF, Chemo, Hep., AIDS, mental health diagnosis, sleep apnea, morbid obesity)? @ -None Was patient admitted / discharged? Hospital course, mention meds given and route, prescriptions, significant lab abnormalities, going to OR and other pertinent info. @ -Admitted to [facility] for psychiatric treatment Undiagnosed new problem with uncertain prognosis? @ -No Drug Therapy requiring intensive monitoring for toxicity (Heparin, Nitro, Insulin, Cardizem)? @ -No Were any procedures done? @ -No Diagnosis/symptom? @ -Depression, bipolar disorder Acute, or Chronic, or Acute on Chronic? @ -Acute] Uncomplicated (without systemic symptoms) or Complicated (systemic symptoms)? @ -], complicatedSide effects of treatment? @ -[o]Exacerbation, Progression, or Severe Exacerbation? @ -[o]Poses a threat to life or bodily function? How? (Chest pain, [place], [place], pneumonia, PE, COPD, DKA, ARF, appy, cholecystitis, CVA, Diverticulitis, Homicidal, Suicidal, threat to staff... and all critical care pts) @ -[o] Disposition Clinical Impression: Acute psychosis, Depression Disposition: TRANSFER TO PSYCH HOSP/UNIT Referrals: Zahida Pearce DO [Primary Care Provider] - 1-2 days Time of Disposition: 15:43
[2023-02-17] MEDS ORDERED: IBUPROFEN 600 MG TAB PO PRN ×2 (16:46→16:51)
[2023-02-17] MEDS ORDERED: MAGNESIUM HYDROXIDE 2,400 MG/30 ML CUP PO PRN (16:46)
[2023-02-17] MEDS ORDERED: MAG HYDROX/AL HYDROX/SIMETH 30 ML CUP PO PRN (16:46)
[2023-02-17] MEDS ORDERED: LORazepam 2 MG/ML INJ IM PRN (16:49)
[2023-02-17] MEDS ORDERED: LORazepam 1 MG TAB PO PRN (16:50)
[2023-02-17] MEDS ORDERED: HALOPERIDOL LACTATE 5 MG/ML 1 ML VIAL IM PRN (16:51)
[2023-02-17] MEDS ORDERED: haloperidoL 5 MG TAB PO PRN (16:51)
[2023-02-17] MEDS: QUEtiapine 25 MG TAB PO SCH (21:22)
[2023-02-17] MEDS: MIRTAZAPINE 15 MG TAB PO SCH (21:23)
--- NOTE | 2023-02-17 23:57 | P.CONS ---
History of Present Illness - Reason for Consult Consult date: 02/17/23 - History of Present Illness Attempted to see the patient in the mental health unit at 2100 on 02/17. The patient refused to be seen or be evaluated. Past Medical History Past Medical History: Unable to Obtain Additional Past Medical History / Comment(s): Reports a history of chronic fatigue syndrome and abdominal pain when eating red meat. History of Any Multi-Drug Resistant Organisms: Unobtainable Past Surgical History: Unable to Obtain Additional Past Surgical History / Comment(s): Denies surigical HX Past Anesthesia/Blood Transfusion Reactions: No Reported Reaction Smoking Status: Never smoker Medications and Allergies Home Medications Medication Instructions Recorded Confirmed Type Ibuprofen [Motrin] 600 mg PO Q8H PRN 30 Days #90 tab 11/06/22 02/17/23 Rx QUEtiapine [SEROquel] 75 mg PO HS 30 Days #90 tab 11/06/22 02/17/23 Rx Mirtazapine [Remeron] 15 mg PO HS 02/17/23 02/17/23 History Allergies Allergy/AdvReac Type Severity Reaction Status Date / Time latex Allergy Unknown Rash/Hives Verified 02/17/23 18:21 prednisone AdvReac Hallucinati Verified 02/17/23 18:21 ons Physical Exam Vitals: Vital Signs Temp Pulse Pulse Resp BP BP Pulse Ox 02/17/23 18:41 98.2 F 77 16 110/82 02/17/23 09:57 98.2 F 82 20 117/84 98 Intake and Output 02/17/23 02/17/23 02/18/23 14:59 22:59 06:59 Other: Weight 70.307 kg 70.307 kg
[2023-02-18 08:30] LABS: ALT 53 U/L (4-34); AST 43 U/L (14-36); African American GFR (CKD) >90 (>60 ml/min/1.73 sqM); Albumin 3.5 g/dL (3.5-5.0); Alkaline Phosphatase 66 U/L (38-126); Anion Gap 6 mmol/L; Blood Urea Nitrogen 13 mg/dL (7-17); Calcium 8.7 mg/dL (8.4-10.2); Carbon Dioxide 28 mmol/L (22-30); Chloride 105 mmol/L (98-107); Glucose 94 mg/dL (74-99); Non-African American GFR(CKD) >90 (>60 ml/min/1.73 sqM); Potassium 2.9 mmol/L (3.5-5.1); Sodium 139 mmol/L (137-145); Total Protein 6.2 g/dL (6.3-8.2)
[2023-02-18 08:40] LABS: HCT 40.1 % (34.0-46.0); HGB 14.2 gm/dL (11.4-16.0); MCH 32.3 pg (25.0-35.0); MCHC 35.4 g/dL (31.0-37.0); MCV 91.3 fL (80.0-100.0); Mean Platelet Volume 11.1; RBC 4.39 m/uL (3.80-5.40); RDW 12.8 % (11.5-15.5); WBC 7.9 k/uL (3.8-10.6)
[2023-02-18] MEDS: NICOTINE GUM (POLACRILEX) 2 MG GUM BUCCAL PRN (09:31)
[2023-02-18 09:32] LABS: Platelet Count 169 k/uL (150-450)
[2023-02-18] MEDS: POTASSIUM CHLORIDE ER 20 MEQ TAB.ER PO SCH ×2 (10:52→12:49)
[2023-02-18 15:47] LABS: Chol/HDL Ratio 3.64 Ratio; LDL Cholesterol,Calculated 49.1 mg/dL (0.0-131.0)
--- NOTE | 2023-02-18 19:20 | P.HP ---
Psychiatric H&P - . H&P Date: 02/18/23 History & Physical: Allergies Allergy/AdvReac Type Severity Reaction Status Date / Time latex Allergy Unknown Rash/Hives Verified 02/17/23 18:21 prednisone AdvReac Hallucinati Verified 02/17/23 18:21 ons Vital Signs Temp 97.6 F 02/18/23 06:46 Pulse 78 02/18/23 06:46 Resp 14 02/18/23 06:46 BP 88/57 02/18/23 06:46 Pulse Ox 98 02/17/23 09:57 FiO2 Intake & Output 02/17/23 02/18/23 02/18/23 18:59 06:59 18:59 Weight 70.307 kg Laboratory Last Values WBC 7.9 k/uL (3.8-10.6) 02/18/23 07:45 RBC 4.39 m/uL (3.80-5.40) 02/18/23 07:45 Hgb 14.2 gm/dL (11.4-16.0) 02/18/23 07:45 Hct 40.1 % (34.0-46.0) 02/18/23 07:45 MCV 91.3 fL (80.0-100.0) 02/18/23 07:45 MCH 32.3 pg (25.0-35.0) 02/18/23 07:45 MCHC 35.4 g/dL (31.0-37.0) 02/18/23 07:45 RDW 12.8 % (11.5-15.5) 02/18/23 07:45 Plt Count 169 k/uL (150-450) 02/18/23 07:45 MPV 11.1 02/18/23 07:45 Sodium 139 mmol/L (137-145) 02/18/23 07:45 Potassium 2.9 mmol/L (3.5-5.1) L 02/18/23 07:45 Chloride 105 mmol/L (98-107) 02/18/23 07:45 Carbon Dioxide 28 mmol/L (22-30) 02/18/23 07:45 Anion Gap 6 mmol/L 02/18/23 07:45 BUN 13 mg/dL (7-17) 02/18/23 07:45 Creatinine 0.66 mg/dL (0.52-1.04) 02/18/23 07:45 Est GFR (CKD-EPI)AfAm >90 (>60 ml/min/1.73 sqM) 02/18/23 07:45 Est GFR (CKD-EPI)NonAf >90 (>60 ml/min/1.73 sqM) 02/18/23 07:45 Glucose 94 mg/dL (74-99) 02/18/23 07:45 Calcium 8.7 mg/dL (8.4-10.2) 02/18/23 07:45 Total Bilirubin 2.0 mg/dL (0.2-1.3) H 02/18/23 07:45 AST 43 U/L (14-36) H 02/18/23 07:45 ALT 53 U/L (4-34) H 02/18/23 07:45 Alkaline Phosphatase 66 U/L (38-126) 02/18/23 07:45 Total Protein 6.2 g/dL (6.3-8.2) L 02/18/23 07:45 Albumin 3.5 g/dL (3.5-5.0) 02/18/23 07:45 TSH 1.500 mIU/L (0.465-4.680) 02/18/23 07:45 Coronavirus (PCR) Not Detected (Not Detectd) 02/17/23 15:57 02/18/23 15:14 IDENTIFYING DATA: Patient is a 37 year old female with history of psychosis and cannabis use disorder who was admitted due to psychosis in the context of noncompliance with her medications. HPI: Patient presented to the hospital by police on a pick-up order due to having missed appointments at [facility] and noncompliance with her outpatient medications. This is her fourth psychiatric hospitalization at [facility] in the past year. She is a poor historian due to her denial and minimization. Per clinical certificate, Caty has been responding to internal stimuli, not compliant with prescribed medications or treatment plan. The history she provides is filled with several contradictions. She reports she ran out of her medications and forgot to take it. She does not recall the name of the medication. She reports she was sleeping and awake at the same time, and was having "delusions", but changes her mind and says "sleepwalking" and they were dreams. She states it's like "lucid dreaming". She is in denial and dismissive. She reports only missing 3 days of her medications, but it is likely she has mis sed more than what she reports. She claims she has been going to [facility] for her appointments and only missed one appointment. She reports she keeps going into "delusions" because she feels like she is sleepwalking and not getting enough sleep, but then claims she has been sleeping fine. Patient denies any suicidal or homicidal ideation, intent or plan. At this time patient denies any auditory or visual hallucinations, however she appears to be attending to internal stimuli with thought blocking and staring. Patient denies any flight of ideas racing thoughts and increased in goal directed behavior. Patient admits to using cannabis. PAST PSYCHIATRIC HISTORY: Patient states that she has lupus and she does not have a mental illness. Patient denies being on any psychiatric medications currently. She was recently discharged in November 2022 on Seroquel and Remeron. This is her fourth psychiatric hospitalization at [facility] in the past year. Psychiatric outpatient follow-up: [facility] Patient denies any history of suicide attempts in the past. PMH: She reports she has a history of lupus. Past Medical History: Unable to Obtain Additional Past Medical History / Comment(s): Reports a history of chronic fatigue syndrome and abdominal pain when eating red meat. History of Any Multi-Drug Resistant Organisms: Unobtainable Past Surgical History: Unable to Obtain Additional Past Surgical History / Comment(s): Denies surigical HX Past Anesthesia/Blood Transfusion Reactions: No Reported Reaction Past Psychological History: Unable to Obtain Smoking Status: Vaper Past Alcohol Use History: None Reported Past Drug Use History: None Reported ALLERGIES: as per EMR CHEMICAL DEPENDENCY HISTORY: as per HPI FAMILY PSYCHIATRIC/SUBSTANCE USE HISTORY: denies SOCIAL HISTORY: She lives with her boyfriend of 15 years, her two children (16 yo and 11 yo). Per chart, Patient was born and raised in claims that she was born and raised in the [place] and [facility]. States that she lives in [place]. Claims that she went to high school and completed it. States that she has 3 kids of her own, lives with 2 of them. She also lives with her boyfriend in a house. She is unemployed. She denied any legal history. MENTAL STATUS EXAM: General Appearance: Patient appears to be stated age is alert, with fair hygiene/grooming. Behavior: Patient is seated without any agitated behavior, but stares and is slow to respond. Speech: Patient's speech is delayed but generally fluent. Mood/Affect: Patient reports their mood is "fine", affect is congruent and constricted. Suicidality/Homicidality: Patient denies having any homicidal ideation intent or plan. Denies any suicidal ideation, intent or plan. Perceptions: Patient denies any visual hallucinations and denies any auditory hallucinations, but objectively is attending to internal stimuli with thought blocking and staring. Though content/process: There is some evidence of delusional thought content and thought process has thought blocking. Memory and concentration: AOX3, grossly intact for the purposes of this session. Can spell "WORLD" backwards Judgment and insight: very poor STRENGTHS/WEAKNESSES: strength is that patient has housing. Weakness is that patient has poor judgment and is noncompliant with medications. INTELLECT: Average IMPRESSIONS: Unspecified psychotic disorder, rule out schizophrenia vs psychosis due to general medical condition (she reports she has lupus) PLAN: -Patient is admitted under involuntary cert. It is unclear if she is on a court order or demand for hearing. This will need to be verified on Sunday. Patient has not signed adult voluntary form and medication consent. A second certification was completed. -Medications: Restart Seroquel 75 mg QHS for psychosis. She will likely need to switch to oral antipsychotic with long-acting injectable. Restart Remeron 15 mg QHS for mood. -Ativan and Haldol PRN for agitation/aggression -Patient was informed of the risks, benefits and side effects of the medication and patient verbally consented to taking the medications. Patient signed med consent form and was placed in chart. -Internal Medicine consult to perform medical evaluation and physical. -NRT - nicotine patch -SW on board for discharge planning. Encourage patient to participate in groups to work on coping skills. Will await deferral and court date. 02/18/23 16:14 02/18/23 18:57
[2023-02-18] MEDS: MIRTAZAPINE 15 MG TAB PO SCH (21:29)
[2023-02-18] MEDS: QUEtiapine 25 MG TAB PO SCH (21:29)
--- NOTE | 2023-02-19 04:32 | P.CONS ---
History of Present Illness - Reason for Consult Consult date: 02/19/23 - History of Present Illness The patient is a 37-year-old female with a PMH of bipolar disorder who presented to the emergency room under police custody after a pickup order. The patient was admitted to the mental health unit where she was seen and evaluated. The patient reports that she had missed her [facility] appointments and had also forgotten to take her medications which were causing her to be delusional. She denied any additional chronic medical illnesses and had no physical complaints at the time of interview. Denied experiencing chest discomfort, shortness of breath, fever, chills, cough, nausea, vomiting, abdominal pain, diarrhea. Reports recreational marijuana use. Denied additional illicit substance, or alcohol use. Laboratory evaluation was reviewed and was remarkable for total bilirubin 2.0, AST 43, ALT 53, and potassium 2.9 Review of systems: Pertinent positives and negatives as discussed in HPI, a complete review of systems was performed and all other systems are negative. Physical examination: General: non toxic, no distress, appears at stated age, normal weight Derm: no unusual rashes/lesions, no unusual ecchymoses, warm, dry Head: atraumatic, normocephalic, symmetric Eyes: EOMI, no lid lag, anicteric sclera ENT: Nose and ears atraumatic, no thrush, no pharyngeal erythema Neck: trachea midline, supple Mouth: no lip lesion, mucus membranes moist Cardiovascular: S1S2 reg, no murmur, no edema Lungs: CTA bilateral, no rhonchi, no rales , no accessory muscle use Abdominal: soft, nontender to palpation, no guarding Ext: no gross muscle atrophy, no contractures, Neuro: No gross focal neuro deficits noted Psych: Alert, oriented, appropriate affect Assessment: Marijuana abuse Hypokalemia Abnormal LFTs, unclear etiology Psychosis Plan: Advised on importance of cessation Replace potassium and monitor for improvement Monitor LFTs Thank you for allowing us to participate in the care of this patient. We will follow peripherally. Do not hesitate to contact us with questions. Someone can be reached from the [facility] hospitalist group at all hours of the day at [phone]. Past Medical History Past Medical History: Unable to Obtain Additional Past Medical History / Comment(s): Reports a history of chronic fatigue syndrome and abdominal pain when eating red meat. History of Any Multi-Drug Resistant Organisms: Unobtainable Past Surgical History: Unable to Obtain Additional Past Surgical History / Comment(s): Denies surigical HX Past Anesthesia/Blood Transfusion Reactions: No Reported Reaction Smoking Status: Never smoker Medications and Allergies Home Medications Medication Instructions Recorded Confirmed Type Ibuprofen [Motrin] 600 mg PO Q8H PRN 30 Days #90 tab 11/06/22 02/17/23 Rx QUEtiapine [SEROquel] 75 mg PO HS 30 Days #90 tab 11/06/22 02/17/23 Rx Mirtazapine [Remeron] 15 mg PO HS 02/17/23 02/17/23 History Allergies Allergy/AdvReac Type Severity Reaction Status Date / Time latex Allergy Unknown Rash/Hives Verified 02/17/23 18:21 prednisone AdvReac Hallucinati Verified 02/17/23 18:21 ons Physical Exam Vitals: Vital Signs Temp Pulse Resp BP 02/18/23 06:46 97.6 F 78 14 88/57 Results CBC & Chem 7: 02/18/23 07:45 02/18/23 07:45 Labs: Abnormal Lab Results - Last 24 Hours (Table) 02/18/23 Range/Units 07:45 Potassium 2.9 L (3.5-5.1) mmol/L Total Bilirubin 2.0 H (0.2-1.3) mg/dL AST 43 H (14-36) U/L ALT 53 H (4-34) U/L Total Protein 6.2 L (6.3-8.2) g/dL Triglycerides 157.00 H (0.00-149.00) mg/dL HDL Cholesterol 30.50 L (40.00-60.00) mg/dL
--- NOTE | 2023-02-19 11:46 | P.PN ---
Progress Note - Text Progress Note Date: 02/19/23 Interval History: Patient was seen resting in bed and was directable and agreeable to speak with singer songwriter in the office. Currently, the patient is denying any suicidal or homicidal ideation, intention, and/or plan. She overtly states this provider that she does not believe she has any mental illness. She reports that she has a history of excessive energy and prior to this admission, she did not sleep for 3 nights. She attributes her exacerbation of psychotic symptoms to her lack of sleep. Patient was informed that a demand has been filed for mental health treatment by [facility] due to a history of nonadherence with treatment. Patient vehemently states that she has been in adherent except for missing one appointment. After significant discussion, she is agreeable to using Invega with plans to transition to a long-acting injectable. The patient continues to report visual hallucinations and appears to respond to internal stimuli. Mental Status Exam: General Appearance: Patient appears to be stated age is alert, directable, and cooperative. Behavior: Patient is calmly seated without any agitated behavior. At times, the patient does appear to be responding to internal stimuli Speech: Patient's speech is fluent and nonpressured. Mood/Affect: Mood is "I don't need to be here," affect is congruent and blunted. Suicidality/Homicidality: Patient denies any suicidal or homicidal ideation Perceptions: Patient admits to visual hallucinations. Denies any current auditory hallucinations. Though content/process: Appears to response internal stimuli. Memory and concentration: AOX3, grossly intact for the purposes of this session Judgment and insight: Poor Vital Signs Temp 97.3 F L 02/19/23 06:00 Pulse 90 02/19/23 06:00 Resp 18 02/19/23 06:00 BP 105/61 02/19/23 06:00 Pulse Ox 96 02/19/23 06:00 FiO2 Laboratory Results - Last 24 Hours 02/18/23 02/18/23 07:45 07:[address] Glu mg/dL 114 Hemoglobin A1c 5.6 Triglycerides 157.00 H Cholesterol 111.00 LDL Cholesterol, Calc 49.1 VLDL Cholesterol, Calc 31.40 HDL Cholesterol 30.50 L Cholesterol/HDL Ratio 3.64 Assessment Psychosis, unspecified Nonadherence with medication treatment Plan: -Patient continues to meet criteria for inpatient psychiatric admission for symptom stabilization and safety. Abdomen has been filed for mental health court. -Medications: Discontinue Seroquel. Start Invega with plans to transition to a long-acting injectable. Continue Remeron 15 mg by mouth at bedtime for insomnia -When necessary Ativan and Haldol for agitation/aggression. -NRT - nicotine patch -SW on board for discharge planning. Encouraged the patient to participate in milieu.
[2023-02-19] MEDS: NICOTINE GUM (POLACRILEX) 2 MG GUM BUCCAL PRN (15:23)
[2023-02-19] MEDS ORDERED: QUEtiapine 50 MG TAB PO SCH (21:00)
[2023-02-19] MEDS ORDERED: PALIPERIDONE 3 MG TAB.ER.24 PO SCH (21:00)
[2023-02-19] MEDS: MIRTAZAPINE 15 MG TAB PO SCH (21:08)
--- NOTE | 2023-02-20 11:34 | P.PN ---
Progress Note - Text Progress Note Date: 02/20/23 Interval History: Patient was seen resting in bed and was directable and agreeable to speak with typewriter ribbon winder in her room. The patient reports that she has had improved sleep last night. She does however continue to report that she is experiencing "lucid dreaming while I am awake." When asked as to further define what this entails, the patient refused to go into any specifics. She explains that she feels like she can control things and that she is seeing things. She states that, "It is as if I am dreaming but I am awake." She has been in adherent with her medication is not reporting any significant side effects. She reports no suicidal or homicidal ideation, intention, and/or plan. She denies any overt paranoia. Mental Status Exam: General Appearance: Patient appears to be stated age is alert, directable, and cooperative. Behavior: Patient is calmly lying down in bed without any agitated behavior. Speech: Patient's speech is fluent and nonpressured. Mood/Affect: Mood is "I'm feeling well rested" affect is congruent and constricted. More range today. Suicidality/Homicidality: Patient denies any suicidal or homicidal ideation Perceptions: Patient admits to visual hallucinations. Denies any current auditory hallucinations. Though content/process: Linear and logical in short conversation. Memory and concentration: AOX3, grossly intact for the purposes of this session Judgment and insight: Mildly improving Vital Signs Temp 98.3 F 02/20/23 06:00 Pulse 81 02/20/23 06:00 Resp 19 02/20/23 06:00 BP 127/86 02/20/23 06:00 Pulse Ox 99 02/20/23 06:00 FiO2 Assessment Psychosis, unspecified Nonadherence with medication treatment Plan: -Patient continues to meet criteria for inpatient psychiatric admission for symptom stabilization and safety. The patient is reportedly on a treatment order. -Medications: Increase Invega to 6 mg by mouth at bedtime with plans to transition to a long- acting injectable. Continue Remeron 15 mg by mouth at bedtime for insomnia -When necessary Ativan and Haldol for agitation/aggression. -NRT - nicotine patch -SW on board for discharge planning. Encouraged the patient to participate in milieu.
[2023-02-20] MEDS ORDERED: PALIPERIDONE 6 MG TAB.ER.24 PO SCH (21:00)
[2023-02-20] MEDS: MIRTAZAPINE 15 MG TAB PO SCH (21:40)
--- NOTE | 2023-02-21 11:13 | P.PN ---
Progress Note - Text Progress Note Date: 02/21/23 Interval History: Patient was seen resting in bed and was directable and agreeable to speak with leader writer in her room. The patient reports that she is sleeping well however staff have noted that she has only slept for 2 hours last night. She continues to report that she is "constantly dreaming." She reports that she was dreaming about aliens invading us that she was part of [place] Wars. The patient is overtly denying any auditory or visual hallucinations. However, the patient has been noted by staff to respond to internal stimuli. She was observed, "petting her bed." She has been adherent with her medications and is not reporting any side effects. Mental Status Exam: General Appearance: Patient appears to be stated age is alert, directable, and cooperative. Behavior: Patient is calmly lying down in bed without any agitated behavior. Speech: Patient's speech is fluent and nonpressured. Mood/Affect: Mood is "I'm doing okay" affect is congruent and constricted. Suicidality/Homicidality: Patient denies any suicidal or homicidal ideation Perceptions: Patient admits to visual hallucinations. Denies any current auditory hallucinations. Though content/process: Bizarre magical thinking. Memory and concentration: AOX3, grossly intact for the purposes of this session Judgment and insight: Poor Vital Signs Temp 98.3 F 02/20/23 06:00 Pulse 81 02/20/23 06:00 Resp 19 02/20/23 06:00 BP 127/86 02/20/23 06:00 Pulse Ox 99 02/20/23 06:00 FiO2 Assessment Psychosis, unspecified Nonadherence with medication treatment Plan: -Patient continues to meet criteria for inpatient psychiatric admission for symptom stabilization and safety. A demand has been filed for court. She is scheduled for court on 02/28/2023. -Medications: Increase Invega to 9 mg by mouth at bedtime with plans to transition to a long-acting injectable. Continue Remeron 15 mg by mouth at bedtime for insomnia -When necessary Ativan and Haldol for agitation/aggression. -NRT - nicotine patch -SW on board for discharge planning. Encouraged the patient to participate in milieu.
[2023-02-21] MEDS: NICOTINE GUM (POLACRILEX) 2 MG GUM BUCCAL PRN (19:13)
[2023-02-21] MEDS: MIRTAZAPINE 15 MG TAB PO SCH (20:41)
[2023-02-21] MEDS ORDERED: PALIPERIDONE 3 MG TAB.ER.24 PO SCH (21:00)
[2023-02-22] MEDS: NICOTINE GUM (POLACRILEX) 2 MG GUM BUCCAL PRN (09:03)
[2023-02-22] MEDS ORDERED: PALIPERIDONE IM 234 MG/1.5 ML SYG IM STA (11:09)
--- NOTE | 2023-02-22 11:12 | P.PN ---
Progress Note - Text Progress Note Date: 02/22/23 Interval History: Patient was seen resting in bed and was directable and agreeable to speak with typewriter mechanic in her room. The patient is currently not reporting any suicidal or homicidal ideation, and/or plan. She is not reporting any auditory or visual hallucinations today. She reports that she was able to sleep well last night. The patient states that she spends her days thinking about her future career. 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 She reports that she has been constantly thinking about lymphatic drainage massage. She wishes to agree with treatment and is requesting to waive and stipulate to a mental health court order. She has been adherent with her medication and is not reporting any significant side effects. She is agreeable to transitioning to long-acting Invega Sustenna today. She had visitation from her yesterday and states that it went well. She reports no medical issues or concerns. She is noted to have low blood pressure today. Oral Invega will be held. Mental Status Exam: General Appearance: Patient appears to be stated age is alert, directable, and cooperative. Behavior: Patient is calmly seated upright in bed without any agitated behavior. Speech: Patient's speech is fluent and nonpressured. Mood/Affect: Mood is "feeling good" affect is congruent and constricted. Suicidality/Homicidality: Patient denies any suicidal or homicidal ideation Perceptions: Patient is not forthcoming with any perception abnormalities today. Though content/process: Linear and logical in short conversation Memory and concentration: AOX3, grossly intact for the purposes of this session Judgment and insight: Mildly improving Vital Signs Temp 96.8 F L 02/22/23 05:44 Pulse 66 02/22/23 05:44 Resp 16 02/22/23 05:44 BP 90/52 02/22/23 05:44 Pulse Ox 98 02/22/23 05:44 FiO2 Assessment Bipolar disorder, unspecified Nonadherence with medication treatment Plan: -Patient continues to meet criteria for inpatient psychiatric admission for symptom stabilization and safety. A demand has been filed for court. She is scheduled for court on 02/28/2023. -Medications: Discontinue oral Invega and transition to a long-acting injectable Invega Sustenna 234 mg IM today. Continue Remeron 15 mg by mouth at bedtime for insomnia -When necessary Ativan and Haldol for agitation/aggression. -NRT - nicotine patch -SW on board for discharge planning. Encouraged the patient to participate in milieu.
[2023-02-22] MEDS: MIRTAZAPINE 15 MG TAB PO SCH (20:28)
[2023-02-23 06:04] VITALS: BP 124/75; PULSE 131; RESP 18; TEMP 97.9
[2023-02-23] MEDS: NICOTINE GUM (POLACRILEX) 2 MG GUM BUCCAL PRN (09:19)
--- NOTE | 2023-02-23 12:49 | P.DS ---
Providers Date of admission: 02/17/23 16:44 Expected date of discharge: 02/23/23 Attending physician: Carter Roberto MD Consults: 02/17/23 16:46 Consult Physician Routine Consulting Provider: Pradeep Morfin Consult Reason/Comments: medical management Do you want consulting provider notified?: Yes Primary care physician: Zahida Pearce - Discharge Diagnosis(es) (1) Bipolar disorder, unspecified Current Visit: Yes Status: Acute Priority: High (2) Nonadherence to medication Current Visit: Yes Status: Chronic Priority: Medium Hospital Course: Admission HPI: terese is a 37 year old female with history of psychosis and cannabis use disorder who was admitted due to psychosis in the context of noncompliance with her medications. HPI: Patient presented to the hospital by police on a pick-up order due to having missed appointments at [facility] and noncompliance with her outpatient medications. This is her fourth psychiatric hospitalization at [facility] in the past year. She is a poor historian due to her denial and minimization. Per clinical certificate, Caty has been responding to internal stimuli, not compliant with prescribed medications or treatment plan. The history she provides is filled with several contradictions. She reports she ran out of her medications and forgot to take it. She does not recall the name of the medication. She reports she was sleeping and awake at the same time, and was having "delusions", but changes her mind and says "sleepwalking" and they were dreams. She states it's like "lucid dreaming". She is in denial and dismissive. She reports only missing 3 days of her medications, but it is likely she has missed more than what she reports. She claims she has been going to [facility] for her appointments and only missed one appointment. She reports she keeps going into "delusions" because she feels like she is sleepwalking and not getting enough sleep, but then claims she has been sleeping fine. Patient denies any suicidal or homicidal ideation, intent or plan. At this time patient denies any auditory or visual hallucinations, however she appears to be attending to internal stimuli with thought blocking and staring. Patient denies any flight of ideas racing thoughts and increased in goal directed behavior. Patient admits to using cannabis. PAST PSYCHIATRIC HISTORY: Patient states that she has lupus and she does not have a mental illness. Patient denies being on any psychiatric medications currently. She was recently discharged in November 2022 on Seroquel and Remeron. This is her fourth psychiatric hospitalization at [facility] in the past year. Psychiatric outpatient follow-up: [facility] Patient denies any history of suicide attempts in the past. Hospital course: Upon admission to the unit patient was initially presenting as bizarre, responding to internal stimuli, with limited insight and judgment. The man has been filed for mental health court due to her history of nonadherence with treatment. Patient was however directable and agreeable to commence treatment. Patient got along well with other patients on the unit and followed unit protocol. Patient was compliant with the medications and denied any side effects throughout hospital course. Patient was started on her home medications of Seroquel and Remeron however due to concern for nonadherence with treatment, her Seroquel was changed to Invega. Patient spoke of her stressors and engaged in therapy both group and individual. Patient was also seen by medical team for history and physical exam. Over the course of the hospital physician, the patient had intermittent nights of excessive energy and no sleep. She is also been noted by staff to respond to internal stimuli. Eventually, as her Invega was titrated, the patient displayed significant improvement in regards her target symptoms of jo ann and psychosis. She became much more linear and logical in conversation and reported a reduction in her "dreamlike episodes." She responded less to internal stimuli. She was even agreeable to transitioning to Invega Sustenna and received her first loading dose of 234 mg IM on 02/22/23. The patient tolerated the injectable well. On the day of discharge, the patient is not reporting any suicidal or homicidal ideation, intention, and/or plan. She is not reporting any auditory or visual hallucinations. She denies any a ccess to firearms or other weapons. 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 She was counseled at length on abstaining from all substances including tobacco, marijuana, and illicit drug use. She was also counseled on the point medication adherence and appropriate outpatient follow-up. She plans to defer mental health court and was informed that this entails following up with [facility]. She reports some medical issues or concerns on the day of discharge and is denying any chest pain, shortness of breath, palpitations, akathisia, or tardive dyskinesia. As the patient no longer met criteria for acute inpatient psychiatric hospitalization, she was subsequently discharged after appropriate safety plan. Mental status exam: General Appearance: Patient appears to be stated age is alert, pleasant, and cooperative. Patient is in no acute distress and has fair hygiene and grooming Behavior: Patient is calmly seated without any agitated behavior. Speech: Patient's speech is fluent and nonpressured. Mood/Affect: Patient reports their mood is "much better", affect is congruent and euthymic to bright. Suicidality/Homicidality: Patient denies having any suicidal or homicidal ideation intent or plan. Perceptions: Patient denies any auditory or visual hallucinations. Though content/process: There is no evidence of any delusional thought content and thought process is linear and goal-directed. Patient is future and goal oriented Memory and concentration: AOX3, grossly intact for the purposes of this session. Can spell "WORLD" backwards correctly. Judgment and insight: Improved with guarded prognosis Impression: Bipolar disorder, unspecified Nonadherence with medication treatment Plan: -Continue with discharge today as patient has improved and stabilized psychiatrically and is not currently an imminent threat to herself and/or others. Patient will remain at chronically elevated risk due to her history of nonadherence with treatment and the severity of her mental illness -Recommend MRI of the brain in the near future -Continue medications: Invega Sustenna 234 mg IM was administered on 02/22/2023. Next dose of Invega Sustenna 156 mg IM is due on . Remeron 15 mg daily at bedtime for insomnia -Patient was counseled on the need for medication compliance and appropriate follow-up at mental health and also primary care for medical issues. Patient verbalized understanding and agreed. -Social work to arrange for and conduct family meeting to ensure safety upon discharge and answer any questions/concerns. Social work also to arrange for patients follow up appointments with [facility] for psychiatric care along with follow up with primary care provider. -Patient counseled on abstaining from recreational drugs and marijuana and alcohol. Was informed/educated on the adverse effects on their physical and mental health. Patient verbally agreed and understood. -Patient was instructed to return to the hospital or seek immediate medical care if their psychiatric or medical symptoms do worsen or reoccur. -Psychoeducation and supportive therapy provided to patient. Risks and benefits of pharmacological treatment versus the risks and benefits of nontreatment weighed and discussed. Informed consent discussion held. Common side effects of psychotropics discussed such as, but not limited to headache, GI disturbance, sexual dysfunction, movement disorders, sedation, and orthostatic hypotension. Life threatening and blackbox warnings of prescribed medications also discussed. Potential risks of operating a vehicle or heavy machinery discussed with patient at length. Advised on importance of compliance and a reliable and responsible manner. Patient advised to review FDA consumer labeling of all medications prior to taking. Patient verbalized understanding of potential risks, and agrees with current treatment plan. Patient advised to medically contact physician/emergency personnel if any acute changes in condition occur. Vital Signs Temp 97.9 F 02/23/23 05:00 Pulse 131 H 02/23/23 05:00 Resp 18 02/23/23 05:00 BP 124/75 02/23/23 05:00 Pulse Ox 93 L 02/23/23 05:00 FiO2 Laboratory Results WBC 7.9 k/uL (3.8-10.6) 02/18/23 07:45 RBC 4.39 m/uL (3.80-5.40) 02/18/23 07:45 Hgb 14.2 gm/dL (11.4-16.0) 02/18/23 07:45 Hct 40.1 % (34.0-46.0) 02/18/23 07:45 MCV 91.3 fL (80.0-100.0) 02/18/23 07:45 MCH 32.3 pg (25.0-35.0) 02/18/23 07:45 MCHC 35.4 g/dL (31.0-37.0) 02/18/23 07:45 RDW 12.8 % (11.5-15.5) 02/18/23 07:45 Plt Count 169 k/uL (150-450) 02/18/23 07:45 MPV 11.1 02/18/23 07:45 Sodium 139 mmol/L (137-145) 02/18/23 07:45 Potassium 2.9 mmol/L (3.5-5.1) L 02/18/23 07:45 Chloride 105 mmol/L (98-107) 02/18/23 07:45 Carbon Dioxide 28 mmol/L (22-30) 02/18/23 07:45 Anion Gap 6 mmol/L 02/18/23 07:45 BUN 13 mg/dL (7-17) 02/18/23 07:45 Creatinine 0.66 mg/dL (0.52-1.04) 02/18/23 07:45 Est GFR (CKD-EPI)AfAm >90 (>60 ml/min/1.73 sqM) 02/18/23 07:45 Est GFR (CKD-EPI)NonAf >90 (>60 ml/min/1.73 sqM) 02/18/23 07:45 Glucose 94 mg/dL (74-99) 02/18/23 07:[address] Glu mg/dL 114 mg/dL 02/18/23 07:45 Hemoglobin A1c 5.6 % (<=6.0) 02/18/23 07:45 Calcium 8.7 mg/dL (8.4-10.2) 02/18/23 07:45 Total Bilirubin 2.0 mg/dL (0.2-1.3) H 02/18/23 07:45 AST 43 U/L (14-36) H 02/18/23 07:45 ALT 53 U/L (4-34) H 02/18/23 07:45 Alkaline Phosphatase 66 U/L (38-126) 02/18/23 07:45 Total Protein 6.2 g/dL (6.3-8.2) L 02/18/23 07:45 Albumin 3.5 g/dL (3.5-5.0) 02/18/23 07:45 Triglycerides 157.00 mg/dL (0.00-149.00) H 02/18/23 07:45 Cholesterol 111.00 mg/dL (0.00-200.00) 02/18/23 07:45 LDL Cholesterol, Calc 49.1 mg/dL (0.0-131.0) 02/18/23 07:45 VLDL Cholesterol, Calc 31.40 mg/dL (5.00-40.00) 02/18/23 07:45 HDL Cholesterol 30.50 mg/dL (40.00-60.00) L 02/18/23 07:45 Cholesterol/HDL Ratio 3.64 Ratio 02/18/23 07:45 TSH 1.500 mIU/L (0.465-4.680) 02/18/23 07:45 Coronavirus (PCR) Not Detected (Not Detectd) 02/17/23 15:57 Allergies Allergy/AdvReac Type Severity Reaction Status Date / Time latex Allergy Unknown Rash/Hives Verified 02/17/23 18:21 prednisone AdvReac Hallucinati Verified 02/17/23 18:21 ons Patient Condition at Discharge: Stable Plan - Discharge Summary Discharge Rx Participant: No New Discharge Prescriptions: New Paliperidone IM [Invega Sustenna] 156 mg IM QMONTHLY 1 Days #1 each Mirtazapine [Remeron] 15 mg PO HS 30 Days #30 tab Continue Ibuprofen [Motrin] 600 mg PO Q8H PRN 30 Days #90 tab PRN Reason: Moderate To Severe Pain (4-10) Discontinued Mirtazapine [Remeron] 15 mg PO HS QUEtiapine [SEROquel] 75 mg PO HS 30 Days #90 tab Discharge Medication List Ibuprofen [Motrin] 600 mg PO Q8H PRN 30 Days #90 tab 11/06/22 [Rx] Mirtazapine [Remeron] 15 mg PO HS 30 Days #30 tab 02/23/23 [Rx] Paliperidone IM [Invega Sustenna] 156 mg IM QMONTHLY 1 Days #1 each 02/23/23 [Rx] Follow up Appointment(s)/Referral(s): [facility] [Outside] - 02/28/23 8:30 am (02-28-23 at 8:30 with Jaison Cerda 02-28-23 at 9:00 with Rebekah Lan ) Zahida Pearce DO [Primary Care Provider] - 1-2 days Activity/Diet/Wound Care/Special Instructions: Avoid the use of street drugs and alcohol. Take all medications as prescribed. When you are in need of refills on your medications, please contact your medical provider and/or outpatient psychiatrist/provider to have this done. Please go to your scheduled outpatient appointment for aftercare treatment. If symptoms return or become worse, call the crisis line at and/or go to the nearest emergency room for evaluation. National Suicide Hotline 988. Discharge Disposition: HOME SELF-CARE
== END 2023-02-23 14:30 | disposition home or self-care (01) | DRG 753 ==
LOC: EC 09:52 → 3MHU 16:44
PROVIDERS: ADMIT Psychiatry & Neurology Psychiatry; ATTEND Psychiatry & Neurology Psychiatry
DX: F31.9 Bipolar disorder, unspecified (principal); E87.6 Hypokalemia; F12.10 Cannabis abuse, uncomplicated; F51.3 Sleepwalking [somnambulism]; G47.00 Insomnia, unspecified; Z20.822 Contact with and (suspected) exposure to COVID-19; Z79.899 Other long term (current) drug therapy; Z91.148 Patient's other noncompliance with medication regimen for other reason; Z91.199 Patient's noncompliance with other medical treatment and regimen due to unspecified reason; Z88.8 Allergy status to other drugs, medicaments and biological substances; Z91.040 Latex allergy status
CPT/HCPCS: 80053; 80061; 82075; 83036; 84443; 85027; 87635; 99285

== ENCOUNTER 2024-02-21 12:00 | Inpatient (IN) | payer MEDICAID, OTHER ==
[2024-03-01] MEDS ORDERED: LORazepam 1 MG TAB ONE (21:34)
[2024-03-02] MEDS ORDERED: MAGNESIUM HYDROXIDE 2,400 MG/30 ML CUP PO PRN (00:37)
[2024-03-02] MEDS ORDERED: MAG HYDROX/AL HYDROX/SIMETH 30 ML CUP PO PRN (00:37)
[2024-03-02] MEDS ORDERED: ACETAMINOPHEN TAB 325 MG TAB PO PRN (00:38)
[2024-03-02] MEDS ORDERED: LORazepam 1 MG TAB PO PRN (00:38)
[2024-03-02] MEDS ORDERED: LORazepam 2 MG/ML INJ IM PRN (00:38)
[2024-03-02] MEDS ORDERED: haloperidoL 5 MG TAB PO PRN (00:40)
[2024-03-02] MEDS ORDERED: HALOPERIDOL LACTATE 5 MG/ML 1 ML VIAL IM PRN (00:41)
[2024-03-02] MEDS ORDERED: DEXTROSE 50% SYRINGE 50 ML IVP PRN ×2 (00:42)
[2024-03-02 07:40] LABS: Glucose,Whole Blood 189 mg/dL (70-110)
[2024-03-02] MEDS: INSULIN ASPART (NovoLOG) 100 UNIT/ML VIAL SQ SCH (08:58)
[2024-03-02] MEDS: metFORMIN 500 MG TAB PO SCH (08:59)
[2024-03-02] MEDS: NICOTINE 14MG/24HR PATCH TRANSDERM SCH (09:01)
[2024-03-02] MEDS: PALIPERIDONE 3 MG TAB.ER.24 PO SCH (09:01)
[2024-03-02] MEDS: busPIRone HCl 5 MG TAB PO SCH (09:01)
[2024-03-02] MEDS: DAPAGLIFLOZIN PROPANEDIOL 5 MG TABLET PO SCH (09:01)
--- NOTE | 2024-03-02 10:26 | P.PN ---
Progress Note - Text Progress Note Date: 03/02/24 The patient was seen and chart was reviewed and case discussed with nursing staff Patient was seen for follow-up. She reports that she is doing much better Patient is casually dressed and groomed reports that she is ready to go home whenever they released her She states that she is taking her medications as prescribed She denies any side effects from her current medications Alert and attentive. Orientation times three. Dressed and Groomed: Appropriately. Casually dressed and groomed Pleasant and cooperative. Psychomotor Activity: Normal. Speech: Normal in tone, quality, and quantity. Mood: Euthymic Affect: Euthymic SI or HI: None. Perceptual disturbance: None. Thought Content: No paranoia or other delusional thinking noted. Thought Process: Normal. Cognition: Intact Judgment and Insight: Good AIMS: Normal. Labs: No new labs. Plan and Recommendations: Continue current Medications. Monitor MS and side effects of medications and adjust medications accordingly. Provide supportive psychotherapy. The patient provided psychoeducation The patient to attend dodd activities. Medication Consent with explanation of risk/benefits and side effects: Explained and obtained. New medication added Remeron 15 mg at bedtime Active Medications Generic Name Dose Route Start Last Admin Trade Name Freq PRN Reason Stop Dose Admin Acetaminophen 650 mg 03/02/24 00:38 Acetaminophen Tab 325 Mg Tab PO Q4HR PRN PAIN/DISCOMFORT Al Hydroxide/Mg Hydroxide 30 ml 03/02/24 00:37 Mag Hydrox/Al Hydrox/Simeth 30 Ml Cup PO Q4HR PRN GI Upset Buspirone HCl 15 mg 03/02/24 09:00 03/02/24 09:01 Buspirone Hcl 5 Mg Tab PO 15 mg BID CARMEN Administration Dapagliflozin 5 mg 03/02/24 09:00 03/02/24 09:01 Dapagliflozin Propanediol 5 Mg Tablet PO 5 mg DAILY CARMEN Administration Dextrose/Water 25 ml 03/02/24 00:42 Dextrose 50% Syringe 50 Ml IVP PER PROTOCOL PRN Hypoglycemia Protocol Dextrose/Water 50 ml 03/02/24 00:42 Dextrose 50% Syringe 50 Ml IVP PER PROTOCOL PRN Hypoglycemia Protocol Haloperidol 5 mg 03/02/24 00:40 Haloperidol 5 Mg Tab PO Q6H PRN SEVERE AGITATION Haloperidol Lactate 5 mg 03/02/24 00:41 Haloperidol Lactate 5 Mg/Ml 1 Ml Vial IM Q6HR PRN Agitation or Acute Psychosis Insulin Aspart 0 unit 03/02/24 07:30 03/02/24 08:58 Insulin Aspart (Novolog) 100 Unit/Ml Vial SQ 2 unit ACHS CARMEN Administration Protocol Lorazepam 1 mg 03/02/24 00:38 Lorazepam 1 Mg Tab PO Q6H PRN ANXIETY/ AGITATION Lorazepam 1 mg 03/02/24 00:38 Lorazepam 2 Mg/Ml Inj IM Q6HR PRN ANXIETY/ AGITATION Magnesium Hydroxide 2,400 mg 03/02/24 00:37 Magnesium Hydroxide 2,400 Mg/30 Ml Cup PO DAILY PRN Constipation Metformin HCl 500 mg 03/02/24 07:30 03/02/24 08:59 Metformin 500 Mg Tab PO 500 mg BID-W/MEALS CARMEN Administration Mirtazapine 15 mg 03/02/24 21:00 Mirtazapine 15 Mg Tab PO HS CARMEN Nicotine 1 patch 03/02/24 09:00 03/02/24 09:01 Nicotine 14mg/24hr Patch TRANSDERM 1 patch DAILY CARMEN Administration Paliperidone 3 mg 03/02/24 09:00 03/02/24 09:01 Paliperidone 3 Mg Tab.Er.24 PO 3 mg DAILY CARMEN Administration Paliperidone 6 mg 03/02/24 21:00 Paliperidone 6 Mg Tab.Er.24 PO HS CARMEN
[2024-03-02 13:02] LABS: Glucose,Whole Blood 198 mg/dL (70-110)
[2024-03-02 17:41] LABS: Glucose,Whole Blood 195 mg/dL (70-110)
[2024-03-02 19:58] LABS: Glucose,Whole Blood 278 mg/dL (70-110)
[2024-03-02] MEDS ORDERED: MIRTAZAPINE 15 MG TAB ONE (22:07)
[2024-03-02] MEDS ORDERED: busPIRone HCl 5 MG TAB ONE (22:07)
[2024-03-02 22:35] LABS: Glucose,Whole Blood 243 mg/dL (70-110)
[2024-03-02] MEDS: PALIPERIDONE 6 MG TAB.ER.24 PO SCH (22:36)
[2024-03-02] MEDS: MIRTAZAPINE 15 MG TAB PO SCH (22:36)
[2024-03-03 07:26] VITALS: RESP 16
[2024-03-03 07:43] LABS: Glucose,Whole Blood 187 mg/dL (70-110)
[2024-03-03] MEDS ORDERED: NICOTINE 14MG/24HR PATCH TRANSDERM ONE (09:33)
[2024-03-03] MEDS ORDERED: busPIRone HCl 5 MG TAB ONE (09:33)
[2024-03-03] MEDS ORDERED: metFORMIN 500 MG TAB ONE (09:33)
[2024-03-03 12:40] LABS: Glucose,Whole Blood 155 mg/dL (70-110)
--- NOTE | 2024-03-03 16:56 | P.PN ---
Progress Note - Text Progress Note Date: 03/03/24 Follow-up Mediation Review Chief Complaint: I am feeling good. Subjective: The patient noted that she is feeling much clear and has been taking all her medications. She held spontaneous goal directed conversation. She appeared in good spirits. The patient noted that she has been talking to boyfriend. As per patient, he feels there is a good improvement. The patient is agreed to get monthly Invega shot. She reported no side effects. The patient has been compliant with treatment recommendations. The patient has been attending the groups. The participation is good. The interaction with staff and peers is good. The patient is compliant with treatment recommendations. Leading questions: The patient admitted to mild Depression and Anxiety. Denied SI or HI. Denied symptoms consistent with psychosis. Sleep and Appetite: Fair. Change in family/ living/job/financial/daily routine: No change. Change in medical condition: No change. Change in medications: No change. Side effects from Medications: None. Allergies: No change. Objective- MSE: Alert and attentive. Orientation times three. Dressed and Groomed: Appropriately. Pleasant and cooperative. Psychomotor Activity: Normal. Speech: Normal in tone, quality, and quantity. Mood: I am better. Affect: Appropriate to the mood. SI or HI: None. Perceptual disturbance: None. Thought Content: No paranoia or other delusional thinking noted. Thought Process: Normal. Cognition: Intact Judgment and Insight: Fair. AIMS: Normal. Labs: Labs ordered. Diagnosis: No change. Plan and Recommendations: Continue current Medications. Monitor MS and side effects of medications and adjust medications accordingly. Provide supportive psychotherapy. The patient provided psychoeducation and advised The patient to attend dodd activities. CBC with Diff, CMP, TSH, Lipid Profile, HbA1c, EKG, Test ordered. Medication Consent with explanation of risk/benefits and side effects: Explained and obtained.
[2024-03-03 17:39] LABS: Glucose,Whole Blood 244 mg/dL (70-110)
[2024-03-03 20:12] LABS: Glucose,Whole Blood 233 mg/dL (70-110)
[2024-03-04 06:47] VITALS: BP 100/71; PULSE 85; TEMP 98.2
[2024-03-04 07:44] LABS: Glucose,Whole Blood 217 mg/dL (70-110)
[2024-03-04 09:00] VITALS: BMI 31.6
[2024-03-04 11:29] LABS: Basophils # (A) 0.1 k/uL (0-0.2); Basophils % (A) 1 %; Eosinophils # (A) 0.1 k/uL (0-0.7); Eosinophils % (A) 2 %; HCT 41.1 % (34.0-46.0); HGB 14.1 gm/dL (11.4-16.0); Lymphocytes # (A) 1.6 k/uL (1.0-4.8); Lymphocytes % (A) 31 %; MCH 32.3 pg (25.0-35.0); MCHC 34.4 g/dL (31.0-37.0); MCV 93.9 fL (80.0-100.0); Mean Platelet Volume 9.7; Monocytes # (A) 0.3 k/uL (0-1.0); Monocytes % (A) 7 %; Neutrophils % (A) 58 %; Platelet Count 204 k/uL (150-450); RBC 4.37 m/uL (3.80-5.40); RDW 13.1 % (11.5-15.5); WBC 5.2 k/uL (3.8-10.6)
[2024-03-04] MEDS: PALIPERIDONE IM 156 MG/ML SYG IM STA (11:37)
[2024-03-04 11:39] LABS: ALT 129 U/L (4-34); AST 107 U/L (14-36); African American GFR (CKD) >90 (>60 ml/min/1.73 sqM); Albumin 3.3 g/dL (3.5-5.0); Alkaline Phosphatase 62 U/L (38-126); Anion Gap 5 mmol/L; Blood Urea Nitrogen 10 mg/dL (7-17); Calcium 9.3 mg/dL (8.4-10.2); Carbon Dioxide 24 mmol/L (22-30); Chloride 107 mmol/L (98-107); Glucose 325 mg/dL (74-99); Non-African American GFR(CKD) >90 (>60 ml/min/1.73 sqM); Potassium 4.1 mmol/L (3.5-5.1); Sodium 136 mmol/L (137-145); Total Bilirubin 1.1 mg/dL (0.2-1.3); Total Protein 5.7 g/dL (6.3-8.2)
[2024-03-04 12:37] LABS: Glucose,Whole Blood 258 mg/dL (70-110)
[2024-03-04 19:29] LABS: Chol/HDL Ratio 3.84 Ratio; LDL Cholesterol,Calculated 52.3 mg/dL (0.0-131.0)
== END 2024-03-04 17:34 | disposition home or self-care (01) | DRG 751 ==
LOC: 3MHU 12:00 → UNDOADMIN 12:00 → DISRECOVER 20:55 → UNDODISIN 03-04 17:34
PROVIDERS: ADMIT Psychiatry & Neurology Psychiatry; ATTEND Psychiatry & Neurology Psychiatry
DX: F28 Other psychotic disorder not due to a substance or known physiological condition (principal); E87.1 Hypo-osmolality and hyponatremia; E11.65 Type 2 diabetes mellitus with hyperglycemia; Z71.3 Dietary counseling and surveillance; R74.01 Elevation of levels of liver transaminase levels; R45.1 Restlessness and agitation; Z79.899 Other long term (current) drug therapy; Z88.8 Allergy status to other drugs, medicaments and biological substances; Z91.040 Latex allergy status
CPT/HCPCS: 82075; 93005

== ENCOUNTER 2024-02-21 20:55 | Inpatient (IN) | payer MEDICAID, OTHER | END 2024-02-23 15:40 | disposition home or self-care (01) | DRG 751 | LOC: 3MHU 20:55 | PROVIDERS: ADMIT Psychiatry & Neurology Psychiatry; ATTEND Psychiatry & Neurology Psychiatry | DX: F29 Unspecified psychosis not due to a substance or known physiological condition (principal); R73.9 Hyperglycemia, unspecified | CPT/HCPCS: 80061; 83036 ==